=== PATIENT | female | born 1955 | race Caucasian/White ===

== ENCOUNTER → 2020-02-11 17:22 | Outpatient (CLI) | payer BC, SELFPAY | PROVIDERS: PCP Internal Medicine; Referring Provider Internal Medicine; Visit Provider Internal Medicine | DX: U07.1 COVID-19 (principal) | CPT/HCPCS: 87635; 94799; U0003 ==

== ENCOUNTER → 2022-12-10 | Outpatient (CLI) | payer MEDICARE, SELFPAY ==
--- NOTE | 2022-12-10 07:56 | CT_ITS ---
PROCEDURE: CT RIGHT HIP, KNEE AND ANKLE WITHOUT CONTRAST REASON FOR EXAM: Female, 67 years old. Preoperative planning for the [employer] knee surgery. Knee pain. TECHNIQUE: Transaxial CT of the hip, knee and ankle were obtained. Coronal and sagittal reconstruction images of the knee were provided. Individualized dose optimization techniques were used for this CT. COMPARISON: None. FINDINGS: Standard protocol for the preoperative planning for the [employer] robotic knee surgery was performed. There is mild osteoarthrosis of the right hip, right knee and tibiotalar joint. CT/Extremity Lower without Contra IMPRESSION: Preoperative [employer] knee surgical CT evaluation with findings as described above. Electronically Signed: Seun Francois MD at 9:42 EDT ,
== END | disposition home or self-care (01) ==
LOC: CT 07:55
PROVIDERS: PCP Internal Medicine; Referring Provider Orthopaedic Surgery; Visit Provider Orthopaedic Surgery
DX: M17.11 Unilateral primary osteoarthritis, right knee (principal); G89.29 Other chronic pain
CPT/HCPCS: 73700

== ENCOUNTER 2023-02-03 19:00 | Observation (INO) | payer MEDICARE, SELFPAY ==
--- NOTE | 2023-01-21 12:06 | EKG12_ITS ---
Test Reason : PRE-OP Blood Pressure : / mmHG Vent. Rate : 067 BPM Atrial Rate : 067 BPM P-R Int : 136 ms QRS Dur : 082 ms QT Int : 380 ms P-R-T Axes : -24 028 037 degrees QTc Int : 401 ms Normal sinus rhythm Low voltage QRS Borderline ECG Confirmed by WILBUR LE, ANGÉLICA ([id number]), advertising editor AMBERLY DAVIS ([id number]) on 01/22/2023 8:54:35 AM Referred By: Carlos Woods Confirmed By:ANGÉLICA BOWLES MD
[2023-01-21 13:14] LABS: Absolute Lymphocyte Count 1.89 X10^3/uL (0.83-4.51); Absolute Neutrophil Count 3.5 X10^3/uL (2.0-7.7); Basophil# 0.03 X10^3/uL; Basophil% 0.5 % (0-1); Eosinophil# 0.11 X10^3/uL; Eosinophils% 1.8 % (0-5); Hematocrit 39.9 % (37-47); Hemoglobin 12.7 g/dL (12.0-15.0); Lymphocyte # 1.89 X10^3/ul (0.83-4.51); Lymphocyte % 30.8 % (19-41); Mean Corp Hgb Conc 31.8 g/dL (32-36); Mean Corpuscular Hgb 30.4 pg (27.0-32.0); Mean Corpuscular Volume 95.5 fL (81-99); Mean Platelet Vol. 9.9 fl (6.2-12.0); Monocyte# 0.57 X10^3/uL; Monocyte% 9.3 % (0-10); NRBC Flagged by Analyzer 0 % (0-5); Neutrophil # 3.52 X10^3/uL (2.7-7.7); Neutrophil % 57.3 % (47-70); Platelet Count 291 K/mm3 (150-450); RBC Distribution Width CV 12.1 % (11.6-14.6); RBC Distribution Width SD 42.5 fl (35.1-43.9); Red Blood Count 4.18 M/mm3 (4.2-5.4); White Blood Count 6.1 K/mm3 (4.4-11.0)
[2023-01-21 13:37] LABS: Anion Gap 3 (5-15); BUN 9 mg/dL (7-18); Calcium,Total 9.3 mg/dL (8.5-10.1); Chloride 109 mmol/L (98-107); Creatinine, Serum 0.82 mg/dL (0.55-1.02); EST Glomerular Filtration Rate 74 mL/min (>60); Est Glom Filt Rate - Afr Amer 90 mL/min (>60); Glucose 88 mg/dL (74-106); Potassium 3.8 mmol/L (3.5-5.1); Sodium Level 142 mmol/L (136-145)
[2023-01-21 13:39] LABS: Magnesium 2.3 mg/dL (1.6-2.6)
[2023-02-03] VITALS (14 sets, daily range): BP systolic 106–144; BP diastolic 44–77; PULSE 64–73; RESP 12–18; TEMP 35.9–36.7; O2SAT 92–100; BMI 33.5; BMI 34.4
--- NOTE | 2023-02-03 | KNEE_PTH ---
PATHOLOGY RESULTS PATIENT: SUSAN HOLDER LOC: [facility] U#:[id number] AGE/SX: 67/F ROOM: RI315 RE02/03/[address]: Dr. Carlos Woods MD : [id number] BED: 1 DIS: 02/06/2023 SPEC #: [id number] RECD: 02/04/23 09:01 STATUS: GREGG KEYES #: [id number] TREE: 02/03/23 00:[address]: Carlos Woods DEPT: SURGICAL PATHOLOGY RECD BY: James Bullard ENTERED: 02/04/23 09:01 SP TYPE: TOTAL KNEE OTHR DR: Dr. Caity Sullivan MD Tissues: Knee, NOS Procedures: Decalcification bone/plaque Surgery Specimen Level IV HEADER OPERATION: ERAS, right total knee replacement PRE-OP DIAGNOSIS: Grade IV osteoarthritis right knee, right knee pain TISSUE SUBMITTED: Right knee bone and tissue MICROSCOPIC DIAGNOSIS Bone and soft tissue, right knee, total knee replacement/resection: Pieces of bone with degenerative osteoarthritic changes. Fibroadipose tissue, fibroconnective tissue and reactive synovial tissue. SJ: 02/07/2023 MICROSCOPIC DESCRIPTION Slides are reviewed. GROSS DESCRIPTION Received is one container designated bone and tissue right knee. The specimen consists of multiple fragments of araujo-yellow bone measuring in aggregate 15.0 x 10.0 x 2.0 cm. Also in the specimen container are multiple fragments of yellow-white soft tissue measuring in aggregate 5.0 x 3.0 x 1.0 cm. A number of bony fragments contain articular surfaces consistent with tibial plateau and femoral condyle and displaying prominent osteophyte formation, eburnation and bone erosion. Career Services Representative sections are submitted in two cassettes as follows: 1 - soft tissue, 2 - bone after decalcification. / AM:urszula 02/04/2023 TC: 5 CPT: 33449, 69072
[2023-02-03] MEDS: Lactated Ringers 1,000 ML 75 ML IV ×2 (11:00→16:43)
[2023-02-03] MEDS: Lactated Ringers 1,000 ML 999 ML IV ×2 (11:08→15:46)
[2023-02-03] MEDS: Magnesium 1 GM over 15 mins IV (11:09)
[2023-02-03] MEDS: Acetaminophen 500 MG Tablet 1000 MG PO ×2 (11:09→21:41)
[2023-02-03] MEDS: Gabapentin 600 MG Tablet PO (11:10)
[2023-02-03] MEDS: Celecoxib 200 MG Capsule 400 MG PO (11:10)
[2023-02-03 13:02] LABS: Bedside Glucose 90 mg/dL (74-106)
[2023-02-03] MEDS: Cefazolin 2 GM in 0.9% Normal Saline 100 ML IV (13:27)
[2023-02-03] MEDS: TXA 1000mg in NS100 100ml (IVPB at Incision) 660 MG IV (13:56)
[2023-02-03] MEDS: dexAMETHasone 10 MG/ML Vial IV (13:57)
[2023-02-03] MEDS: TXA 1000mg in NS100 100ml (IVPB at Closure) 660 MG IV (14:36)
[2023-02-03] MEDS: JPS (Morphine 10mg/ml) OPERA.SITE (14:51)
--- NOTE | 2023-02-03 14:54 | OP.PCM_ITS ---
Operative Report Date of Procedure: 02/03/23 Preoperative diagnosis: [Right] knee osteo arthritis Postoperative diagnosis: Same Title of procedure : [Right ] total knee replacement Surgeon: Carlos Woods MD Compliance Project Manager: Dang Brewster PA-C Anesthesia: Spinal, adductor canal nerve block Anesthesiologist: Dr. Zuniga Special medications: Ancef 2 g IV, tranexamic acid 1 g IV x2 EBL: 50 Tourniquet time 39 minutes Indications for surgery: Patient is a [67]-year-old [female] with a history of knee arthritis appropriately treated and failed conservative measures and wished to proceed with total knee replacement. Patient was cleared for surgery by the medical doctor and has been evaluated by the anesthesia staff Findings: Intraoperative findings showed severe arthritis of the knee. Patient underwent knee replacement using [employer] total knee components. Press-fit size [5] femur, size [5] tibia , size [5-11 CS] X3 tibial polyethylene insert, knee was nicely balanced. Patella, not resurfaced, tracked well. Patient underwent standard wound closure in layers. Vicryl and strata fix sutures utilized with skin tevin. district administrative assistant, physician nutrition assistant, was utilized throughout the entire procedure. They were vital in helping with patient positioning, holding of retractors, exposing the tissues adequately for safe completion of the procedure including cutting of the bone, helping fixing machine operator appropriate alignment and sizing of the components, implantation of the components, as well as wound closure, bandage application, and safe patient transfer. Without surgical supply assistant, physician nutrition assistant, surgical time would have been significantly increased, and surgical outcome could have been less optimal. Description of procedure: The patient was taken to the OR, transferred to the OR table. They were given a spinal anesthetic. Ancef was given IV preoperatively. Tranexamic acid was given IV preoperatively. Well-padded tourniquet was applied to the upper thigh of the operative leg. Nonoperative leg had a MERT hose and SCD on throughout. Operative limb was prepped padded and draped in usual orthopedic sterile fashion for the procedure. We began by injecting the pain relieving solution in the anterior superior aspect of the knee region. The limb was exsanguinated, and t he tourniquet was applied to 300 mmHg. Made a midline incision through skin, subcutaneous tissue, bringing down us on the extensor mechanism. Medial parapatellar arthrotomy was carried out. Straw-colored joint fluid was evacuated. We raised a sleeve of tissue off the upper medial tibia. Resected some of the infrapatellar fat pad. We remove degenerative medial and lateral meniscus. Removed bone spurs from about the patella. We removed tissue off the anterior aspect of the distal femur. Patella was translated laterally and/or everted as needed throughout the procedure. ACL was resected. PCL was preserved. Collateral ligaments were preserved. Physician placed the retractors and nutrition assistant held retractors protecting above ligaments throughout the procedure. Cartilage was removed from the distal femur and upper tibia at the appropriate locations. Next custom cutting block was applied to the front of the femur. Appropriate external rotation . Distal femoral cut carried out. 4-in-1 cutting premade block was applied to the distal femur and held in place with 4 pins. Compliance Project Manager again held retractors to protect the soft tissues while surgeon performed anterior, posterior, and chamfer cuts. Bony fragments were removed. PCL retractor was placed and collateral ligament protectors placed by the surgeon, held by the assistance. Tibial external alignment guide was utilized under standard technique going down the shaft of the tibia, to the base of the second metatarsal. Appropriate posterior slope was built in. Compliance Project Manager help fixing machine operator alignment. Cutting block was held in place with 3 pins. Again checked the external alignment. Tibial cut carried out with a saw while the nutrition assistant held retractors protecting the soft tissues about the anterior, medial, lateral, and posterior knee. Bone fragment removed. We then sized off the upper tibia with the help of the nutrition assistant. We then checked flexion extension gaps finding them to be adequate and equal. Next the distal femoral trial was applied. Tibial tray was allowed to freefloat with a 11 mm insert. Knee was flexed and extended an external alignment guide is utilized. Tibial trial was pinned in place. Drill holes were placed into the distal femoral trial and it was removed. Punch was used on the upper tibial component and that was removed. Bone spurs removed from the posterior medial and posterior lateral aspect of the femur while the nutrition assistant lifted up on the distal femur and exposed each side. Patella was inspected, without signs of significant arthritis. Patella was not resurfaced. Knee was thoroughly irrigated with Irrisept and sterile Betadine.. The bony surfaces cleaned and dried. Tourniquet was let down at 39 minutes. We press-fit the tibia, femur. Compliance Project Manager held retractors exposing the bony surfaces of the tibia and femur which were hammered in position. We re-trialed with the help of the nutrition assistant and then placed the appropriate sized polyethylene component. We thoroughly irrigated and debrided the knee. Bleeding controlled with the Bovie. Knee was again thoroughly irrigated with sterile Betadine and Irrisept and saline. Patella noted to track nicely. We repaired the arthrotomy with a combination of #1 Vicryl and #2 strata fix. We did a mid layer of 1 Vicryl and #1 strata fix running. We then did inverted 2-0 vicryl . Powell used on the skin.. Mepilex dressing applied. MERT hose and SCDs applied. Patient was awoken from their anesthetic, transferred back to their own bed and recovery room in satisfactory condition. Second dose of IV Tranexamic acid was given while closing wound. Patient was observation status, appropriate IV antibiotic to be utilized as well as medication for DVT prevention. Hopeful discharge tomorrow. Physical therapy will be consulted. This note was generated with [employer] dictation software. It may contain incorrect words, spelling, and punctuation that were not noted in checking the note before signing.
--- NOTE | 2023-02-03 15:36 | RAD_ITS ---
EXAM: XR RIGHT KNEE, 1 OR 2 VIEWS CLINICAL INDICATION: post op TKA -- in PACU TECHNIQUE: Frontal and/or lateral views of the right knee. COMPARISON: No relevant prior studies available. FINDINGS: BONES/JOINTS: Knee prosthesis in place in satisfactory position. SOFT TISSUES: Soft tissue gas and anterior skin tevin in place. No radiopaque foreign body. RAD/Knee 1 or 2 Views IMPRESSION: Satisfactory postop changes. Electronically Signed: Bladimir Carreno MD at 16:51 EDT ,
[2023-02-03] MEDS: oxyCODONE 5 MG Tablet PO (17:09)
[2023-02-03] MEDS: Tamsulosin HCl 0.4 MG Capsule 0.400000000000000022 MG PO (17:11)
[2023-02-03] MEDS: Cefazolin 1 GM/50 ML BAG IV (17:12)
[2023-02-03] MEDS: Lactated Ringers 1,000 ML 125 ML IV (18:05)
--- OUTSIDE RECORDS SUMMARY | 2023-02-03 19:27 | XMS RPT_ITS | CCD ---
Author Name Unknown Address 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 Name Role Phone Laurie LE, Caity Primary Care Provider LINA LE, DR CORLEY Attending Unavaillauren GANDHI MD, DR CAITY Aden Primary Care Unavaillauren Gandhi MD, Caity Primary Care Provider GANTA, CAITY Referring Unavailable GANTA, CAITY Primary Care Unavailable ANTONIA MIRANDA JR Attending Unavaila NO Zabala Referring Unavailable GANTA, CAITY Primary Care Unavailable GANTA, CAITY Referring Unavailable GANTA, CAITY Primary Care Unavailable GANTA, CAITY Attending Unavailable GANTA, CAITY Referring Unavailable GANTA, CAITY Primary Care Unavailable NO FARNSWORTH Referring Unavailable GANTA, CAITY Primary Care Unavailable GANTA, CAITY Primary Care Unavailable MAGDA MONACO Attending Unavailable GANTA, CAITY Primary Care Unavailable GANTA, CAITY Referring Unavailable GANTA, CAITY Primary Care Unavailable GANTA, CAITY Attending Unavailable GANTA, CAITY Primary Care Unavailable ANTONIA MIRANDA JR Referring Unavaila ble GANTA, CAITY Primary Care Unavailable Medications Current Medications Medication Drug Class(es) Dates Sig (Normalized) Sig (Original) sulfamethoxazole 800 mg / trimethoprim 160 mg oral tablet (7 sources) Dihydrofolate Reductase Inhibitor Antibacterial, Sulfonamide Antimicrobial Start: 04-01-2022 End: 04-06-2022 take 1 tablet by mouth twice daily sulfamethoxazol e-trimethoprim (BACTRIM DS) 800-160 mg per tablet Indications: Right flank pain Take 1 tablet by mouth twice daily for 5 days. 10 tablet 0 04/01/2022 04/06/2022 Active Completed/Discontinued Medications Medication Drug Class(es) Dates Sig (Normalized) Sig (Original) betamethasone 3 mg/ml / betamethasone acetate 3 mg/ml injectable suspension (2 sources) Corticosteroid Start: 01-17-2022 End: 01-17-2022 betamethasone acetate-betamethason e sodium phosphate 6 mg injection (CELESTONE) Problems Active Problems Problem Classification Problem Date Documented Da te Episodic/Chronic Conditions associated with dizziness or vertigo (20 sources) Vertigo; Translations: [Dizziness and giddiness] 11-02-2010 Episodic Deficiency and other anemia (20 sources) Anemia; Translations: [Anemia, unspecified] 12-02-2013 Episodic Gastrointestinal hemorrhage (2 sources) Hemorrhage of anus and rectum; Translations: [Hemorrhage of anus and rectum] Onset: 11-22-2022 Episodic Genitourinary symptoms and ill-defined conditions (1 source) Frequency of micturition; Translations: [Urinary frequency] Onset: 11-05-2022 Episodic Hemorrhoids (1 source) External hemorrhoids; Translations: [Residual hemorrhoidal skin tags] Episodic Nutritional deficiencies (2 sources) Vitamin D deficiency; Translations: [Vitamin D deficiency, unspecified] Onset: 05-06-2022 Chronic Osteoarthritis (4 sources) Primary gonarthrosis, bilateral; Translations: [Bilateral primary osteoarthritis of knee] Onset: 11-05-2022 Chronic Osteoporosis (2 sources) Osteoporosis; Translations: [Age-related osteoporosis without current pathological fracture] Onset: 05-21-2022 Chronic Other diseases of kidney and ureters (3 sources) Hydronephrosis; Translations: [Hydronephrosis with renal and ureteral calculous obstruction] Episodic Other nervous system disorders (1 source) Other chronic pain; Translations: [Chronic pain of right knee] Onset: 01-20-2023 Chronic Other non-traumatic joint disorders (4 sources) Pain in left knee; Translations: [Pain in joint, lower leg] Episodic Other non-traumatic joint disorders (1 source) Pain in right knee; Translations: [Chronic pain of right knee] Onset: 01-20-2023 Episodic Other non-traumatic joint disorders (1 source) Pain in unspecified joint; Translations: [Arthralgia, unspecified joint] Onset: 11-05-2022 Episodic Other nutritional; endocrine; and metabolic disorders (20 sources) Body mass index 30+ - obesity; Translations: [Obesity, unspecified] Onset: 12-02-2013 12-02-2013 Chronic Other nutritional; endocrine; and metabolic disorders (20 sources) Obese class I; Translations: [Obesity, unspecified] Onset: 2020 2020 Chronic Other skin disorders (1 source) Loss of hair; Translations: [Nonscarring hair loss, unspecified] Episodic Other skin disorders (1 source) Rash and other nonspecific skin eruption; Translations: [Rash of neck] Onset: 11-05-2022 Episodic Residual codes; unclassified (1 source) Menopause present; Translations: [Asymptomatic menopausal state] Episodic Spondylosis; intervertebral disc disorders; other back problems (1 source) Acute low back pain; Translations: [Acute midline low back pain without sciatica] Episodic Past or Other Problems Problem Classification Problem Date Documented Date Episodic/Chronic Abdominal pain (3 sources) Right flank pain; Translations: [Unspecified abdominal pain] Onset: 04-01-2022 Episodic Calculus of urinary tract (3 sources) Kidney stone; Translations: [Calculus of kidney] Onset: 05-14-2022 Episodic Immunizations and screening for infectious disease (1 source) Encounter for screening for human immunodeficiency virus [HIV]; Translations: [Screening for HIV (human immunodeficiency virus)] Onset: 05-06-2022 Episodic Malaise and fatigue (20 sources) Fatigue; Translations: [Other fatigue] Onset: 12-02-2013 12-02-2013 Episodic Nutritional deficiencies (4 sources) Cobalamin deficiency; Translations: [Deficiency of other specified B group vitamins] Onset: 05-06-2022 Episodic Other diseases of kidney and ureters (1 source) Other hydronephrosis; Translations: [Other hydronephrosis] Onset: 05-14-2022 Episodic Other screening for suspected conditions (not mental disorders or infectious disease) (6 sources) Patient encounter status; Translations: [Encounter for screening mammogram for malignant neoplasm of breast] Onset: 05-21-2022 Episodic Other skin disorders (1 source) Nonscarring hair loss, unspecified; Translations: [Hair loss] Onset: 05-06-2022 Episodic Residual codes; unclassified (1 source) Asymptomatic menopausal state; Translations: [Asymptomatic menopause] Onset: 05-21-2022 Episodic Results Test Name Value Interpretation Reference Range Facil ity Vital Signs Date Time Vital Sign Value Performing Clinician Faci lity 01-20-2023 09:01-0400 Body weight 92.53 kg Magda Jacinda SAS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 Work Phone: [facility] 01-20-2023 09:01-0400 Diastolic blood pressure 80 mm[Hg] Magda Jacinda SAS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 Work Phone: [facility] 01-20-2023 09:01-0400 Heart rate 90 /min Magda Jacinda SAS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 Work Phone: [facility] 01-20-2023 09:01-0400 Respiratory rate 16 /min Magda Jacinda SAS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 Work Phone: [facility] 01-20-2023 09:01-0400 SaO2% (BldA) [Mass fraction] 98 % Magda Jacinda SAS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 Work Phone: [facility] 01-20-2023 09:01-0400 Systolic blood pressure 120 mm[Hg] Magda Jacinda SAS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 Work Phone: [facility] 05-14-2022 13:14-0500 Body height 168.9 cm Antonia Miranda Jr., MD Work Phone: [facility] 05-14-2022 13:14-0500 Body weight 94.8 kg Antonia Miranda Jr., MD Work Phone: [facility] 05-06-2022 11:13-0500 Body height 167.6 cm Caity Gandhi MD Work Phone: [facility] 05-06-2022 11:13-0500 Body temperature 97.59 [degF] Caity Gandhi MD Work Phone: [facility] 05-06-2022 11:13-0500 Body weight 93.89 kg Caity Gandhi MD Work Phone: [facility] 05-06-2022 11:13-0500 Diastolic blood pressure 62 mm[Hg] Caity Gandhi MD Work Phone: [facility] 05-06-2022 11:13-0500 Heart rate 75 /min Caity Gandhi MD Work Phone: [facility] 05-06-2022 11:13-0500 Respiratory rate 12 /min Caity Gandhi MD Work Phone: [facility] 05-06-2022 11:13-0500 SaO2% (BldA) [Mass fraction] 97 % Caity Gandhi MD Work Phone: [facility] 05-06-2022 11:13-0500 Systolic blood pressure 120 mm[Hg] Caity Gandhi MD Work Phone: [facility] 04-01-2022 11:57-0400 Body temperature 97.11 [degF] No Bogner PA-C Work Phone: [facility] 04-01-2022 11:57-0400 Body weight 94.8 kg No Bogner PA-C Work Phone: [facility] 04-01-2022 11:57-0400 Diastolic blood pressure 82 mm[Hg] No Bogner PA-C Work Phone: [facility] 04-01-2022 11:57-0400 Heart rate 66 /min No Bogner PA-C Work Phone: [facility] 04-01-2022 11:57-0400 Respiratory rate 16 /min No Bogner PA-C Work Phone: [facility] 04-01-2022 11:57-0400 SaO2% (BldA) [Mass fraction] 98 % No Bogner PA-C Work Phone: [facility] 04-01-2022 11:57-0400 Systolic blood pressure 136 mm[Hg] No Bogner PA-C Work Phone: [facility] 12-31-2021 11:45-0400 Body weight 94.8 kg Mona Older SAS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 Work Phone: [facility] 12-31-2021 11:45-0400 Diastolic blood pressure 72 mm[Hg] Mona Older SAS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 Work Phone: [facility] 12-31-2021 11:45-0400 Heart rate 66 /min Mona Older SAS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 Work Phone: [facility] 12-31-2021 11:45-0400 Respiratory rate 18 /min Mona Older SAS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 Work Phone: [facility] 12-31-2021 11:45-0400 Systolic blood pressure 126 mm[Hg] Mona Older SAS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 Work Phone: [facility] Encounters Encounter Date Encounter Type Care Provider Facility Start: 01-23-2023 Telephone encounter Caity tellez MD Work Phone: [facility] Procedures Date Procedure Procedure Detail Performing Clinician Start: 05-14-2022 Urnls dip stick/tabl et rgnt auto w/o microscopy Antonia Miranda MD Work Phone: Start: 04-01-2022 Us retroperitoneal r eal time w/image complete No Farnsworth PA-C Work Phone: Start: 04-01-2022 Urnls dip stick/tabl et rgnt auto w/o microscopy Anna Claros PA-C Work Phone: Start: 01-17-2022 Arthrocentesis aspir &/inj major jt/bursa w/o us Lloyd Lovell MD Work Phone: Start: 08-26-2018 Mammography Mona Older SAS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 Work Phone: Start: 04-13-2018 Adult depression scr eening assessment Mona Older SAS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 Work Phone: Start: 04-01-2017 Colonoscopy Mona Older SAS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 Work Phone: Plan of Treatment Date Care Activity Detail Author Start: 04-01-2027 Colonoscopy COLONOSCOPY [facility] Start: 04-01-2027 COLORECTAL CANCER SCREENING COLORECTAL CANCER SCREENING [facility] Start: 06-06-2026 LIPID SCREEN LIPID SCREEN [facility] Start: 06-06-2024 DIABETES SCREEN DIABETES SCREEN [facility] Start: 12-15-2023 SIGMOIDOSCOPY SIGMOIDOSCOPY [facility] Start: 02-14-2023 Influenza vaccination [facility] Start: 06-16-2022 ADVANCE DIRECTIVE DISCUSSION ADVANCE DIRECTIVE DISCUSSION [facility] Start: 06-16-2022 DEPRESSION ASSESSMENT DEPRESSION ASSESSMENT [facility] Start: 05-06-2022 End: 07-06-2022 25-hydroxyvitamin D3 [Mass/volume] in Serum or Plasma [facility] Work Phone: Immunizations Immunization Date Immunization Notes Care Provider Fa brady 06-05-2021 influenza, injectabl e, quadrivalent, contains preservative Mona Older SAS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 Work Phone: [facility] Work Phone: 04-13-2018 influenza, injectabl e, quadrivalent, contains preservative Mona Older SAS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 Work Phone: [facility] Work Phone: 02-18-2017 zoster vaccine, live Mona Old er SAS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 Work Phone: [facility] 12-13-2010 tetanus toxoid, reduced diphtheria toxoid, and acellular pertussis vaccine, adsorbed Mona Older SAS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 Work Phone: [facility] Work Phone: NEGATED: Highlighted row has not occurred!05-06-2022 pneumococcal (PCV20) vaccine, 20 valent (PREVNAR 20) Caity Gandhi MD Work Phone: [facility] Work Phone: Payers Date Payer Category Payer Medicare [employer] [place] [id number] 2021-Present [phone] [address] [place] [address] [facility] [id number] 2021 Medicare [employer] [place] [id number] 2021-Present [phone] [address] [place] [address] [facility] [id number] 2021 Unknown [id number] 1955 Unknown [id number] Social History Date Type Detail Facility Start: 04-01-2017 End: 05-06-2022 Tobacco smoking status NHIS Ex-smoker [facility] End: 06-16-1986 History of tobacco use Current smoker [facility] End: 06-16-1986 History of tobacco use Cigarette Smoker [facility] Start: 04-01-2017 End: 11-05-2022 Cigarettes smoked current (pack per day) - Reported 0.5 [facility] Work Phone: Start: 04-01-2017 End: 05-06-2022 Tobacco use and exposure Smokeless tobacco non-user [facility] Start: 12-31-2021 End: 01-20-2023 Alcohol intake Current non-drinker of alcohol (finding) [facility] Start: 1955 Sex Assigned At Not on file [facility] Start: 12-18-2021 End: 12-28-2021 Exposure to SARS-CoV-2 (event) Unable to assess [facility] Work Phone: Start: 01-07-2022 End: 05-14-2022 Exposure to SARS-CoV-2 (event) Not sure [facility] Start: 11-05-2022 End: 01-20-2023 Tobacco use panel [facility] Work Phone: Adult Depression Screening Assessment 0 [facility] Work Phone: Clinical Notes 12-02-2013 to 01-23-2023 Telephone Encounter - Vanessa Osman RN - 01/23/2023 8:43 AM Magda Duran APRN.CNP - 01/20/2023 9:04 AM EDTTelephone Encounter - Daisy Turner LPN - 11/19/2022 2:31 PM EDT Note Date & Type Note Facility 01-23-2023 Miscellaneous Notes Dejuan from [facility] called in asking to have pre-op clearance faxed over to them. Faxed last OV note to # [phone]. documented in this encounter [facility] 01-20-2023 Note HNO ID: [id number] Author: Magda Monaco APRN.RESIDENTIAL SALES Service: ? Author Type: Nurse Practitioner Type: Progress Notes Filed: 01/29/2023 9:51 AM Note Text: SUBJECTIVE Olinda Holder is a 67 year old female here today for a pre-op appointment. Chief Complaint Patient presents with: Pre-Op Exam HPI Olinda Holder is an 67 year old female established patient of Dr. Gandhi who presents to the office for a pre-op examination. Is scheduled to have a right TKR following failure of conservative therapies done on 02/03/2023 by Mikael Madison with Dr. Woods at [facility]. History of having anesthesia: Yes, has had prior c-sections, sigmoidoscopy, foot surgery. Any reaction from anesthesia in the past: No. Personal or family history of heart disease: No. Plans for care after surgery: stay in [facility] and then home care. Chronic diseases controlled: N/A. Currently taking a blood thinner: No. Patient denies chest pain, SOB, dizziness, palpitations, one sided weakness, dropping of face or mouth, fever, or recent sickness. No history of CVA or FL. Labs, EKG to be obtained. Prior chest xray was stable. Prior labs stable. No history of significant medical problems. Her medications were reviewed today and her list is now up to date. Medications Current Outpatient Medications Medication Sig Huqwqfibcfc-Rimfjrums-Oqs C-Mn (GLUCOSAMINE CHONDROITIN MAXSTR) 500-400 mg cap Take 1 capsule by mouth three times daily. Cholecalciferol, Vitamin D3, 25 mcg (1,000 unit) cap Take 1 capsule by mouth once daily. cyanocobalamin (VITAMIN B-12) 1,000 mcg tab Take 1 tablet by mouth once daily. calcium polycarbophil (FIBER-LAX) 625 mg tablet Take 1 tablet by mouth as needed. No current facility-administered medications for this visit. ALLERGIES No Known Allergies ACTIVE PROBLEM LIST Obesity, Class I, Bmi 30-34.9 - 2020 Vertigo Anemia Social History Tobacco Use Smoking status: Former Packs/day: 0.50 Years: 15.00 Total pack years: 7.50 Types: Cigarettes Quit date: 1986 Years since quittin.6 Smokeless tobacco: Never Vaping Use Vaping Use: Never used Substance Use Topics Alcohol use: No Drug use: No Review of Systems Constitutional: Negative. Eyes: Negative for visual disturbance. Respiratory: Negative for chest tightness and shortness of breath. Cardiovascular: Negative for chest pain, palpitations and leg swelling. Musculoskeletal: Positive for arthralgias. Neurological: Negative for seizures, syncope, facial asymmetry and speech difficulty. OBJECTIVE BP 120/80 Pulse 90 Resp 16 Wt 204 lb (92.5kg) SpO2 98% LMP 01/04/2011 Physical Exam Vitals and nursing note reviewed. Constitutional: General: She is awake. She is not in acute distress. Appearance: She is well-developed and well-groomed. She is not ill-appearing, toxic-appearing or diaphoretic. HENT: Head: Normocephalic. Eyes: General: Vision grossly intact. Conjunctiva/sclera: Conjunctivae normal. Pupils: Pupils are equal, round, and reactive to light. Neck: Vascular: No carotid bruit or JVD. Cardiovascular: Rate and Rhythm: Normal rate and regular rhythm. Heart sounds: Normal heart sounds. No murmur heard. Pulmonary: Effort: Pulmonary effort is normal. No accessory muscle usage, prolonged expiration or respiratory distress. Breath sounds: Normal breath sounds. Musculoskeletal: Cervical back: Normal range of motion and neck supple. Right lower leg: No edema. Left lower leg: No edema. Skin: General: Skin is warm and dry. Capillary Refill: Capillary refill takes less than 2 seconds. Neurological: General: No focal deficit present. Mental Status: She is alert and oriented to person, place, and time. Mental status is at baseline. Cranial Nerves: No cranial nerve deficit. Sensory: No sensory deficit. Psychiatric: Attention and Perception: Attention and perception normal. Mood and Affect: Mood normal. Speech: Speech normal. Behavior: Behavior normal. Behavior is cooperative. Thought Content: Thought content normal. Judgment: Judgment normal. ASSESSMENT/PLAN: 1. Primary osteoarthritis of right knee - ICD9: 715.16, ICD10: M17.11 (primary diagnosis) Scheduled to have a right TKR following failure of conservative therapies done on 02/03/2023 by Mikael Madison with Dr. Woods at [facility] 2. Chronic pain of right knee - ICD9: 719.46, 338.29, ICD10: M25.561, G89.29 See #1 3. Pre-op evaluation - ICD9: V72.84, ICD10: Z01.818 Based on physical exam done at today's visit, negative review of systems, negative history for heart disease, CVD, and review of prior stable chest xray, the patient is cleared for surgery from a primary care standpoint pending that her pre-op labs and EKG are stable and without issues that would interfere with the planned procedure. If pre-op testing stable then ok to proceed with planned procedure at the discretion of the performing provider. Po (more content not included)... [facility] 01-20-2023 History of Presen t illness Narrative SUBJECTIVE Olinda Holder is a 67 year old female here today for a pre-op appointment. Chief Complaint Patient presents with: Pre-Op Exam HPI Olinda Holder is an 67 year old female established patient of Dr. Gandhi who presents to the office for a pre-op examination. Is scheduled to have a right TKR following failure of conservative therapies done on 02/03/2023 by Mikael Madison with Dr. Woods at [facility]. History of having anesthesia: Yes, has had prior c-sections, sigmoidoscopy, foot surgery. Any reaction from anesthesia in the past: No. Personal or family history of heart disease: No. Plans for care after surgery: stay in [facility] and then home care. Chronic diseases controlled: N/A. Currently taking a blood thinner: No. Patient denies chest pain, SOB, dizziness, palpitations, one sided weakness, dropping of face or mouth, fever, or recent sickness. No history of CVA or FL. Labs, EKG to be obtained. Prior chest xray was stable. Prior labs stable. No history of significant medical problems. Her medications were reviewed today and her list is now up to date. Medications Current Outpatient Medications Medication Sig Klikenlnedt-Cvyxawyzy-Whw C-Mn (GLUCOSAMINE CHONDROITIN MAXSTR) 500-400 mg cap Take 1 capsule by mouth three times daily. Cholecalciferol, Vitamin D3, 25 mcg (1,000 unit) cap Take 1 capsule by mouth once daily. cyanocobalamin (VITAMIN B-12) 1,000 mcg tab Take 1 tablet by mouth once daily. calcium polycarbophil (FIBER-LAX) 625 mg tablet Take 1 tablet by mouth as needed. No current facility-administered medications for this visit. ALLERGIES No Known Allergies ACTIVE PROBLEM LIST Obesity, Class I, Bmi 30-34.9 - 2020 Vertigo Anemia Social History Tobacco Use Smoking status: Former Packs/day: 0.50 Years: 15.00 Total pack years: 7.50 Types: Cigarettes Quit date: 1986 Years since quittin.6 Smokeless tobacco: Never Vaping Use Vaping Use: Never used Substance Use Topics Alcohol use: No Drug use: No Review of Systems Constitutional: Negative. Eyes: Negative for visual disturbance. Respiratory: Negative for chest tightness and shortness of breath. Cardiovascular: Negative for chest pain, palpitations and leg swelling. Musculoskeletal: Positive for arthralgias. Neurological: Negative for seizures, syncope, facial asymmetry and speech difficulty. OBJECTIVE BP 120/80 Pulse 90 Resp 16 Wt 204 lb (92.5kg) SpO2 98% LMP 01/04/2011 Physical Exam Vitals and nursing note reviewed. Constitutional: General: She is awake. She is not in acute distress. Appearance: She is well-developed and well-groomed. She is not ill-appearing, toxic-appearing or diaphoretic. HENT: Head: Normocephalic. Eyes: General: Vision grossly intact. Conjunctiva/sclera: Conjunctivae normal. Pupils: Pupils are equal, round, and reactive to light. Neck: Vascular: No carotid bruit or JVD. Cardiovascular: Rate and Rhythm: Normal rate and regular rhythm. Heart sounds: Normal heart sounds. No murmur heard. Pulmonary: Effort: Pulmonary effort is normal. No accessory muscle usage, prolonged expiration or respiratory distress. Breath sounds: Normal breath sounds. Musculoskeletal: Cervical back: Normal range of motion and neck supple. Right lower leg: No edema. Left lower leg: No edema. Skin: General: Skin is warm and dry. Capillary Refill: Capillary refill takes less than 2 seconds. Neurological: General: No focal deficit present. Mental Status: She is alert and oriented to person, place, and time. Mental status is at baseline. Cranial Nerves: No cranial nerve deficit. Sensory: No sensory deficit. Psychiatric: Attention and Perception: Attention and perception normal. Mood and Affect: Mood normal. Speech: Speech normal. Behavior: Behavior normal. Behavior is cooperative. Thought Content: Thought content normal. Judgment: Judgment normal. ASSESSMENT/PLAN: 1. Primary osteoarthritis of right knee - ICD9: 715.16, ICD10: M17.11 (primary diagnosis) Scheduled to have a right TKR following failure of conservative therapies done on 02/03/2023 by Mikael Madison with Dr. Woods at [facility] 2. Chronic pain of right knee - ICD9: 719.46, 338.29, ICD10: M25.561, G89.29 See #1 3. Pre-op evaluation - ICD9: V72.84, ICD10: Z01.818 Based on physical exam done at today's visit, negative review of systems, negative history for heart disease, CVD, and review of prior stable chest xray, the patient is cleared for surgery from a primary care standpoint pending that her pre-op labs and EKG are stable and without issues that would interfere with the planned procedure. If pre-op testing stable then ok to proceed with planned procedure at the discretion of the performing provider. Portions of this note have been entered by ancillary staff. I have reviewed and when necessary edited, so that they are an adequate record of my encounter with this patient Please note that parts of this document were created using voice recognition software and therefore may contain grammatical errors. Patient verbalizes understanding of instructions from today's visit and in agreement with treatment plan. Questions answered. Agrees to call the office if questions, concerns of issues with acute symptoms not improving or if they worsen. See diagnoses and orders for additional plan(s). Allergies and medications were reviewed, list was updated, and refills given if needed. Past medical, surgical, social, and family history reviewed and updated as appropriate. Encouraged proper diet & exercise as well as compliance with taking medications. Age-appropriate health preventative measures were discussed. Return if symptoms worsen or fail to improve, for Keep next scheduled appointment.. Magda Monaco APRN-KHURRAM documented in this encounter [facility] 01-08-2023 Note Patient Outreach (IN [facility]) OLINDA HOLDER ([id number]) 1955 F Date Time Provider Department 01/08/23 CAITY GANDHI During your visit today, we recorded the following information about you: Allergies As of Date: 01/08/2023 (No Known Allergies) Date Reviewed: 11/05/2022 Reviewed by: Mariella Richard LPN - Fully Assessed Visit Diagnosis:Encounter for screening mammogram for breast cancer [Z12.31] Order(s):[facility] SCREENING [[id number]] Order #: [id number] FUTURE Prescriptions as of 01/13/2023 - Kwnnufsvlgu-Ggkyfqtxq-Ytz C-Mn (GLUCOSAMINE CHONDROITIN MAXSTR) 500-400 mg cap Take 1 capsule by mouth three times daily. - Cholecalciferol, Vitamin D3, 25 mcg (1,000 unit) cap Take 1 capsule by mouth once daily. - cyanocobalamin (VITAMIN B-12) 1,000 mcg tab Take 1 tablet by mouth once daily. - calcium polycarbophil (FIBER-LAX) 625 mg tablet Take 1 tablet by mouth as needed. - tamsulosin (FLOMAX) 0.4 mg Take 1 capsule by mouth daily at bedtime. - tamsulosin (FLOMAX) 0.4 mg Take 1 capsule by mouth daily at bedtime. Meds Comments as of 01/18/2011: B-12 vitamin - unsure of dosage; Calcium plus Problem List As Of Date 01/08/2023 Noted Resolved Vertigo [R42] Anemia [D64.9] Obesity (BMI 30-39.9) [E66.9] 12/02/2013 Fatigue [R53.83] 12/02/2013 Obesity, Class I, BMI 30-34.9 [E66.9] 2020 Encounter Status:Closed by [place] on 01/13/23 [facility] 11-19-2022 Miscellaneous Notes Pt is calling to request referral and pt information be faxed to Dr. Mancuso. Pt info faxed to: [phone]. Daisy Turner LPN documented in this encounter [facility] 11-05-2022 Note HNO ID: [id number] Author: Caity Gandhi MD Service: ? Author Type: Physician Type: Progress Notes Filed: 11/05/2022 8:37 PM Note Text: Reason for Visit Patient presents with: Follow Up Olinda Holder is a 67 year old female who presents here today for Above Complaints.. Health Maintenance COVID-19 VACCINE(1) SHINGRIX VACCINE(2 of 3) MAMMOGRAM DTAP,TDAP,TD(2 - Td or Tdap) PNEUMOCOCCAL: 65+(1 - PCV) ADVANCE DIRECTIVE DISCUSSION DEPRESSION ASSESSMENT HPI Osteopenia: BMD 5 months ago show below Major osteoporotic fracture risk 11% Hip fracture risk 1.9% She has been taking vit d almost every day with food, her levels were mildly low in the past. and calcium 600 once a day Exercises by working in the garden, takes dog out for walk . Weight is stable Kidney stones: had small ones since [address] scan[address] She had some last week. She was given some flomax when she was having pain. For the past few days, she has been having the feeling of incomplete voiding, she has to keep going in. She leaks a little at a time. Needs to use a pad, she also think that the prolapsed uterus is contributing to this inefficiency with the urine. Patient will have an infection in one of the tubing that he has. Looking to have a knee replacement in near future. She has a rash in the area of the shawl. Pain in the knuckles,. And swelling of the hand joints. Feels irritated now adays and is fatigued. 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 PAST MEDICAL HISTORY Diagnosis Date Anemia DJD (degenerative joint disease) Snoring Vertigo Vitamin D deficiency PAST SURGICAL HISTORY Procedure Laterality Date SECTION MULTI>2 COLONOSCOPY FLX DX W/COLLJ SPEC WHEN PFRMD 04/01/2017 Colonoscopy FOOT SURGERY HX SIGMOIDOSCOPY FLX DX W/COLLJ SPEC BR/WA IF PFRMD 12/14/2018 Sigmoidoscopy, flexible FAMILY HISTORY Problem Relation Age of Onset Cancer Mother tumor in the abdomen Cancer Father ? does not know Diabetes Father Diabetes Sister Diabetes Brother other (alzheimers) Paternal Grandmother No Known Problems Maternal Grandmother No Known Problems Maternal Grandfather No Known Problems Paternal Grandfather No Known Problems Sister No Known Problems Sister No Known Problems Sister No Known Problems Sister Diabetes Daughter Gestationl Thyroid Son Hypothyroid No Known Problems Son No Known Problems Son Social History Tobacco Use Smoking status: Former Packs/day: 0.50 Years: 15.00 Pack years: 7.50 Types: Cigarettes Quit date: 1986 Years since quittin.4 Smokeless tobacco: Never Vaping Use Vaping Use: Never used Substance Use Topics Alcohol use: No Drug use: No Past medical history, appointments, medications, allergies reviewed. Pertinent Lab/Diagnostic Studies are reviewed and discussed today Current Outpatient Medications: tamsulosin (FLOMAX) 0.4 mg tamsulosin (FLOMAX) 0.4 mg doxycycline monohydrate (MONODOX) 100 mg capsule meloxicam (MOBIC) 15 mg tablet Review of Systems CONSTITUTIONAL: No fevers, chills night sweats, unintended weight loss CARDIOVASCULAR: No chest pain, dyspnea, palpitations, orthopnea, PND, ankle edema. PULM: No dyspnea, unexplained cough. GI: No dysphagia/odynophagia, problematic reflux, constipation, diarrhea, changes in stool habits, hematochezia, melena. : No new urinary complaints, including dysuria, gross hematuria or pyuria. NEURO: No new balance problems, peripheral weakness/paresthesias or numbness of concern. Physical Exam BP 124/58 (BP Site: Left Arm, BP Position: Sitting, BP Cuff Size: Large Adult) Pulse 71 Temp 36.2 ?C (97.2 ?F) Resp 12 Ht 168.9 cm (5' 6.5 ) Wt 93.9 kg (207 lb) LMP 01/04/2011 SpO2 97% BMI 32.91 kg/m? General appearance: Well appearing, alert, in no acute distress, well nourished. Skin: erythematous , mildly raised redness around the area of the shawl. Head: Normocephalic, no masses, lesions, tenderness or abnormalities Eyes: Anicteric sclera. Pupils are equally round and reactive to light. Extraocular movements are intact. Lungs: Lungs clear to auscultation. No wheezing, rhonchi, rales Heart: RRR without murmur, gallop, or rubs. Extremities: No deformities, edema, skin discoloration, clubbing or cyanosis. Good capillary refill. ASSESSMENT/PLAN: 1. Urinary frequency - ICD9: 788.41, ICD10: R35.0 (primary diagnosis) - URINALYSIS WITH MICROSCOPIC, REFLEX CULTURE - CONSULT TO FEMALE UROLOGY/URO GYNECOLOGY 2. Uterus prolapse - ICD9: 618.1, ICD10: N81.4 - CONSULT TO FEMALE UROLOGY/URO GYNECOLOGY 3. Voiding difficulty - ICD9: 788.99, ICD10: R39.198 The urine stream is thin and inconsistent when she voids - CONSULT TO FEMALE UROLOGY/URO GYNECOLOGY 5. Rash of neck - ICD9: 782.1, ICD10: R21 - SED RATE WESTERGREN - C (more content not included)... [facility] 09-02-2022 Miscellaneous Notes Patient calls and is asking for a referral to gastroenterology due to external hemorrhoids. Patient did have referral placed on 04/01/2022. Advised patient of this, patient asking for referral to be faxed to Dr. Landry's office. Faxed as requested along with office notes, face sheet, and insurance information. Kelly De La Torre RN documented in this encounter [facility] 05-29-2022 Miscellaneous Notes Spoke with pt message released Images from the original note were not included. Antonia Miranda Jr., MD [facility] Ct shows bilateral small nonobstructing stones Fu 1 year. LVM to call back documented in this encounter [facility] 05-28-2022 Note HNO ID: [id number] Author: RT Jose(R) Service: ? Author Type: Gaming Floor Supervisor Type: Progress Notes Filed: 05/28/2022 1:57 PM Note Text: Radiology Service Progress Note PATIENT NAME: Olinda Holder DATE OF SERVICE: May 28, 2022 TIME: 1:57 PM PATIENT IDENTITY VERIFICATION COMPLETED USING TWO (2) IDENTIFIERS: Name and Date of confirmed by patient verbally. FALL SCREENING: Has the patient had 2 falls in the last year or 1 fall with injury or currently using an Ambulatory Assistive Device (Walker, Cane, Wheelchair, Crutches, etc.)? No PATIENT GENDER DATA: Female. status: : No status: NO. PATIENT RELEVANT IMPLANT DATA REVIEWED: Yes RADIOLOGY DEPARTMENT: CT; Exam(s) Completed: Abdomen/Pelvis PERIPHERAL IV DATA: Not applicable SIGNED BY: RT Sima(R) May 28, 2022 1:[address] [facility] 05-24-2022 Miscellaneous Notes Patient notified. ----- Message from Caity Gandhi MD sent at 05/24/2022 2:03 PM EST ----- Low bone mass in both hips. We will discuss at upcoming office visit documented in this encounter [facility] 05-21-2022 Note HNO ID: [id number] Author: RT Nikole(R) Service: ? Author Type: Technologist Type: Progress Notes Filed: 05/21/2022 2:47 PM Note Text: Radiology Service Progress Note PATIENT NAME: Oilnda Holder DATE OF SERVICE: May 21, 2022 TIME: 2:35 PM PATIENT IDENTITY VERIFICATION COMPLETED USING TWO (2) IDENTIFIERS: Name and Date of confirmed by patient verbally. FALL SCREENING: Has the patient had 2 falls in the last year or 1 fall with injury or currently using an Ambulatory Assistive Device (Walker, Cane, Wheelchair, Crutches, etc.)? No PATIENT GENDER DATA: Female. status: : No status: NO. PATIENT RELEVANT IMPLANT DATA REVIEWED: Not Applicable RADIOLOGY DEPARTMENT: Bone Density PERIPHERAL IV DATA: Not applicable SIGNED BY: RT Nikole(R) May 21, 2022 2:[address] [facility] 05-16-2022 Miscellaneous Notes Patient notified of results, verbalizes understanding of instructions. Maddison Sanon MA Second attempt to reach patient by phone with no answer. VM unavailable. Please try again later. THIAGO Saldaña Attempted to contact patient. First attempt-line was busy. On second attempt- no answer and no VM available to leave message. Please try to contact patient again. Debo Atwood RN Iron is normal Vit d levels are mildly lowPlease take OT vit d3 2000 IU daily with food. The vit b12 is a little on the lower side. She can take over the counter supplement, daily Pt requesting PCP to advise on recent lab results from 05/06/22. Pt also requesting refill of flomax if agreeable. Reports continued bladder issues as before. Script pended. Thank you. documented in this encounter [facility] 05-14-2022 Note HNO ID: [id number] Author: Antonia Miranda Jr., MD Service: ? Author Type: Physician Type: Progress Notes Filed: 05/14/2022 1:30 PM Note Text: NEW PATIENT HISTORY AND PHYSICAL EXAM PATIENT INFO: Olinda Holder 66 year old REFERRING PROVIDER: Data Unavailable PCP: Caity Gandhi MD HPI Olinda Holder is a 66 year old female refer for kidney stone and hydronephrosis. Ho kidney stones. Started having right flank pain last month. Renal us 04/01/22 showed bilateral nonobstructing renal calculi with r hydronephrosis. Not much in the way of pain now. Occasional r flank twinges. Has not seen anything pass. Review of Systems Constitutional: Negative. Respiratory: Negative. Cardiovascular: Negative. Gastrointestinal: Negative. Genitourinary: Negative. Skin: Negative. Neurological: Negative. Psychiatric/Behavioral: Negative. LAB: Creatinine Date Value Ref Range Status 06/06/2021 0.75 0.58 - 0.96 mg/dL Final No results found for: PSA Glucose, Urine (mg/dL) Date Value 01/18/2011 Negative Bilirubin, Urine (no units) Date Value 01/18/2011 Negative Ketones, Urine (no units) Date Value 01/18/2011 Negative Specific [place], Ur (no units) Date Value 01/18/2011 1.020 Hemoglobin/Blood,Ur (no units) Date Value 01/18/2011 Negative pH, Urine (no units) Date Value 01/18/2011 5.0 Protein, Urine (mg/dL) Date Value 01/18/2011 Negative Urobilinogen, Urine (EU) Date Value 01/18/2011 Negative Nitrites (no units) Date Value 01/18/2011 Negative Leukocytes (no units) Date Value 01/18/2011 Positive Color/Appearance (comment:) Date Value 01/18/2011 Yellow/clear MEDICATIONS: tamsulosin (FLOMAX) 0.4 mg Take 1 capsule by mouth daily at bedtime. (Patient not taking: Reported on 05/14/2022) tamsulosin (FLOMAX) 0.4 mg Take 1 capsule by mouth daily at bedtime. (Patient not taking: Reported on 05/14/2022) doxycycline monohydrate (MONODOX) 100 mg capsule Take one pill twice daily with food for 7 days. Avoid sun exposure (Patient not taking: Reported on 01/17/2022) meloxicam (MOBIC) 15 mg tablet Take 1 tablet by mouth once daily. With food. (Patient not taking: Reported on 04/01/2022) HISTORIES PAST MEDICAL HISTORY Diagnosis Date Anemia DJD (degenerative joint disease) Snoring Vertigo Vitamin D deficiency FAMILY HISTORY Problem Relation Age of Onset Cancer Mother tumor in the abdomen Cancer Father ? does not know Diabetes Father Diabetes Sister Diabetes Brother other (alzheimers) Paternal Grandmother No Known Problems Maternal Grandmother No Known Problems Maternal Grandfather No Known Problems Paternal Grandfather No Known Problems Sister No Known Problems Sister No Known Problems Sister No Known Problems Sister Diabetes Daughter Gestationl Thyroid Son Hypothyroid No Known Problems Son No Known Problems Son SOCIAL HISTORY Social History Tobacco Use Smoking status: Former Packs/day: 0.50 Years: 15.00 Pack years: 7.50 Types: Cigarettes Quit date: 1986 Years since quittin.9 Smokeless tobacco: Never Vaping Use Vaping Use: Never used Substance Use Topics Alcohol use: No Drug use: No PHYSICAL EXAMINATION Ht 168.9 cm (5' 6.5 ) Wt 94.8 kg (209 lb) LMP 01/04/2011 BMI 33.23 kg/m? General appearance: Well appearing, alert, in no acute distress, and well-hydrated, well nourished Skin: Skin color, texture, turgor normal, no suspicious rashes or lesions Respiratory:+ effort Cardiovascular: Not examined GI: Normal abdominal exam, Abdomen soft, non-tender. No masses, organomegaly Musculoskeletal: normal ROM Neuro: No gross neurologic defecits Genitourinary: not examined ASSESSMENT: (N13.39) Other hydronephrosis (N20.0) Nephrolithiasis PLAN: Ct flank Set for one year Let know results and plan Antonia Miranda Jr, MD [facility] 05-14-2022 Instructions Antonia Miranda Jr., MD - 05/14/2022 1:23 PM EST Counseled patient on increasing fluids, avoiding salt, avoiding caffeine, avoiding large portions of animal fat/meats at one time and increasing citrates in diet. documented in this encounter [facility] 05-14-2022 History of Presen t illness Narrative NEW PATIENT HISTORY AND PHYSICAL EXAM PATIENT INFO: Olinda Holder 66 year old REFERRING PROVIDER: Data Unavailable PCP: Caity Gandhi MD HPI Olinda Holder is a 66 year old female refer for kidney stone and hydronephrosis. Ho kidney stones. Started having right flank pain last month. Renal us 04/01/22 showed bilateral nonobstructing renal calculi with r hydronephrosis. Not much in the way of pain now. Occasional r flank twinges. Has not seen anything pass. Review of Systems Constitutional: Negative. Respiratory: Negative. Cardiovascular: Negative. Gastrointestinal: Negative. Genitourinary: Negative. Skin: Negative. Neurological: Negative. Psychiatric/Behavioral: Negative. LAB: Creatinine Date Value Ref Range Status 06/06/2021 0.75 0.58 - 0.96 mg/dL Final No results found for: PSA Glucose, Urine (mg/dL) Date Value 01/18/2011 Negative Bilirubin, Urine (no units) Date Value 01/18/2011 Negative Ketones, Urine (no units) Date Value 01/18/2011 Negative Specific [place], Ur (no units) Date Value 01/18/2011 1.020 Hemoglobin/Blood,Ur (no units) Date Value 01/18/2011 Negative pH, Urine (no units) Date Value 01/18/2011 5.0 Protein, Urine (mg/dL) Date Value 01/18/2011 Negative Urobilinogen, Urine (EU) Date Value 01/18/2011 Negative Nitrites (no units) Date Value 01/18/2011 Negative Leukocytes (no units) Date Value 01/18/2011 Positive Color/Appearance (comment:) Date Value 01/18/2011 Yellow/clear MEDICATIONS: tamsulosin (FLOMAX) 0.4 mg Take 1 capsule by mouth daily at bedtime. (Patient not taking: Reported on 05/14/2022) tamsulosin (FLOMAX) 0.4 mg Take 1 capsule by mouth daily at bedtime. (Patient not taking: Reported on 05/14/2022) doxycycline monohydrate (MONODOX) 100 mg capsule Take one pill twice daily with food for 7 days. Avoid sun exposure (Patient not taking: Reported on 01/17/2022) meloxicam (MOBIC) 15 mg tablet Take 1 tablet by mouth once daily. With food. (Patient not taking: Reported on 04/01/2022) HISTORIES PAST MEDICAL HISTORY Diagnosis Date Anemia DJD (degenerative joint disease) Snoring Vertigo Vitamin D deficiency FAMILY HISTORY Problem Relation Age of Onset Cancer Mother tumor in the abdomen Cancer Father ? does not know Diabetes Father Diabetes Sister Diabetes Brother other (alzheimers) Paternal Grandmother No Known Problems Maternal Grandmother No Known Problems Maternal Grandfather No Known Problems Paternal Grandfather No Known Problems Sister No Known Problems Sister No Known Problems Sister No Known Problems Sister Diabetes Daughter Gestationl Thyroid Son Hypothyroid No Known Problems Son No Known Problems Son SOCIAL HISTORY Social History Tobacco Use Smoking status: Former Packs/day: 0.50 Years: 15.00 Pack years: 7.50 Types: Cigarettes Quit date: 1986 Years since quittin.9 Smokeless tobacco: Never Vaping Use Vaping Use: Never used Substance Use Topics Alcohol use: No Drug use: No PHYSICAL EXAMINATION Ht 168.9 cm (5' 6.5 ) Wt 94.8 kg (209 lb) LMP 01/04/2011 BMI 33.23 kg/m General appearance: Well appearing, alert, in no acute distress, and well-hydrated, well nourished Skin: Skin color, texture, turgor normal, no suspicious rashes or lesions Respiratory:+ effort Cardiovascular: Not examined GI: Normal abdominal exam, Abdomen soft, non-tender. No masses, organomegaly Musculoskeletal: normal ROM Neuro: No gross neurologic defecits Genitourinary: not examined ASSESSMENT: (N13.39) Other hydronephrosis (N20.0) Nephrolithiasis PLAN: Ct flank Set for one year Let know results and plan Antonia Miranda Jr, MD documented in this encounter [facility] 05-06-2022 Note HNO ID: [id number] Author: Caity Gandhi MD Service: ? Author Type: Physician Type: Progress Notes Filed: 05/06/2022 1:59 PM Note Text: Reason for Visit Patient presents with: Follow Up Olinda Holder is a 66 year old female who presents here today for Above Complaints.. Health Maintenance COVID-19 VACCINE(1) HIV SCREENING SHINGRIX VACCINE(2 of 3) MAMMOGRAM DTAP,TDAP,TD(2 - Td or Tdap) DEPRESSION ASSESSMENT BONE DENSITY ADVANCE DIRECTIVE DISCUSSION PNEUMOCOCCAL: 65+(1 - PCV) INFLUENZA(1) HPI Knee pain: patient is going to see Dr Woods for her knee pain. Had see Dr Lovell and wanted to a second opinion. Patient was also diagnosed with kidney stones in the recent past, she had b/l kidney stones and some proximal dilatations of the ureters. Patient notes everything was hurting her a lot. Seeing uro in [place], Right now there is no pain, sometimes she has discomfort mopping the floors. HTN: Compliant with medications. Denies any chest pain, palpitations, or edema. No SOB. Doesn't check BP at home generally. Careful with diet to avoid salt, trying to eat more fruits and vegetables, exercises regularly. She is taking vit d and b12. She started taking biotin for hair loss. She tried minoxidil, but since it had a side effects of swelling and not sure if that was from the meloxicam or the minoxidil she stopped it and does not want to try the medication again She has lost 2 pounds of weight. The 10-year ASCVD risk score (Abner RODRIGUEZ, et al., 2019) is: 5.1% Values used to calculate the score: Age: 66 years Sex: Female Is Non- : No Diabetic: No Tobacco smoker: No Systolic Blood Pressure: 120 mmHg Is BP treated: No HDL Cholesterol: 46 mg/dL Total Cholesterol: 184 mg/dL No problem-specific Assessment AND Plan notes found for this encounter. PAST MEDICAL HISTORY Diagnosis Date Anemia DJD (degenerative joint disease) Snoring Vertigo Vitamin D deficiency PAST SURGICAL HISTORY Procedure Laterality Date SECTION MULTI>2 COLONOSCOPY FLX DX W/COLLJ SPEC WHEN PFRMD 04/01/2017 Colonoscopy FOOT SURGERY HX SIGMOIDOSCOPY FLX DX W/COLLJ SPEC BR/WA IF PFRMD 12/14/2018 Sigmoidoscopy, flexible FAMILY HISTORY Problem Relation Age of Onset Cancer Mother tumor in the abdomen Cancer Father ? does not know Diabetes Father Diabetes Sister Diabetes Brother other (alzheimers) Paternal Grandmother No Known Problems Maternal Grandmother No Known Problems Maternal Grandfather No Known Problems Paternal Grandfather No Known Problems Sister No Known Problems Sister No Known Problems Sister No Known Problems Sister Diabetes Daughter Gestationl Thyroid Son Hypothyroid No Known Problems Son No Known Problems Son Social History Tobacco Use Smoking status: Former Packs/day: 0.50 Years: 15.00 Pack years: 7.50 Types: Cigarettes Quit date: 1986 Years since quittin.9 Smokeless tobacco: Never Vaping Use Vaping Use: Never used Substance Use Topics Alcohol use: No Drug use: No Past medical history, appointments, medications, allergies reviewed. Pertinent Lab/Diagnostic Studies are reviewed and discussed today Current Outpatient Medications: tamsulosin (FLOMAX) 0.4 mg tamsulosin (FLOMAX) 0.4 mg doxycycline monohydrate (MONODOX) 100 mg capsule meloxicam (MOBIC) 15 mg tablet Review of Systems CONSTITUTIONAL: No fevers, chills night sweats, unintended weight loss CARDIOVASCULAR: No chest pain, dyspnea, palpitations, orthopnea, PND, ankle edema. PULM: No dyspnea, unexplained cough. GI: No dysphagia/odynophagia, problematic reflux, constipation, diarrhea, changes in stool habits, hematochezia, melena. : No new urinary complaints, including dysuria, gross hematuria or pyuria. NEURO: No new balance problems, peripheral weakness/paresthesias or numbness of concern. Physical Exam BP 120/62 (BP Site: Left Arm, BP Position: Sitting, BP Cuff Size: Large Adult) Pulse 75 Temp 36.4 ?C (97.6 ?F) Resp 12 Ht 167.6 cm (5' 6 ) Wt 93.9 kg (207 lb) LMP 01/04/2011 SpO2 97% BMI 33.41 kg/m? General appearance: Well appearing, alert, in no acute distress, well nourished. Skin: Skin color, texture, turgor normal, no suspicious rashes or lesions Head: Normocephalic, no masses, lesions, tenderness or abnormalities Eyes: Anicteric sclera. Pupils are equally round and reactive to light. Extraocular movements are intact. Lungs: Lungs clear to auscultation. No wheezing, rhonchi, rales Heart: RRR without murmur, gallop, or rubs. Extremities: No deformities, edema, skin discoloration, clubbing or cyanosis. Good capillary refill. ASSESSMENT/PLAN: 1. Vitamin B12 deficiency - ICD9: 266.2, ICD10: E53.8 (primary diagnosis) - VITAMIN B12 BLOOD 2. Vitamin D deficiency - ICD9: 268.9, ICD10: E55.9 - VITAMIN D 25 HYDROXY 3. Iron deficiency - ICD9: 280.9, ICD10: E61.1 - IR (more content not included)... [facility] 05-06-2022 Instructions Caity Gandhi MD - 05/06/2022 11:56 AM EST BONE MINERAL DENSITY PATIENT INSTRUCTIONS ========= Bone mineral density testing measures the amount of calcium in certain parts of your bones. This information determines how strong your bones are. The test is used to detect osteoporosis, a disease in which the bone's mineral content and density are low, increasing a person's risk of fractures. The lumbar spine (lower back) and the hip are the skeletal sites usually examined. For the test, remember that: 1. You cannot take this test if you are . 2. Eat a normal diet on the day of the test. 3. Take your medications as you normally would. 4. DO NOT take calcium supplements (such as Tums) for 24 hours before the test. 5. On the day of the test, leave valuables (jewelry or credit cards) at home. 6. The test should be performed prior to oral, rectal or IV contrast studies, or at least 7 days after any of these studies. For the test, you may be asked to wear a hospital gown. You will lie on your back, on a padded table, in a comfortable position. Generally, you can resume your usual activities immediately. documented in this encounter [facility] 05-06-2022 Miscellaneous Notes Elba from Dr Landry's office called in and asked for Pts last OV note, med list, and demographics sheet faxed to their office. Faxed to # [phone]. documented in this encounter [facility] 05-06-2022 History of Presen t illness Narrative Reason for Visit Patient presents with: Follow Up Olinda Holder is a 66 year old female who presents here today for Above Complaints.. Health Maintenance COVID-19 VACCINE(1) HIV SCREENING SHINGRIX VACCINE(2 of 3) MAMMOGRAM DTAP,TDAP,TD(2 - Td or Tdap) DEPRESSION ASSESSMENT BONE DENSITY ADVANCE DIRECTIVE DISCUSSION PNEUMOCOCCAL: 65+(1 - PCV) INFLUENZA(1) HPI Knee pain: patient is going to see Dr Woods for her knee pain. Had see Dr Lovell and wanted to a second opinion. Patient was also diagnosed with kidney stones in the recent past, she had b/l kidney stones and some proximal dilatations of the ureters. Patient notes everything was hurting her a lot. Seeing uro in [place], Right now there is no pain, sometimes she has discomfort mopping the floors. HTN: Compliant with medications. Denies any chest pain, palpitations, or edema. No SOB. Doesn't check BP at home generally. Careful with diet to avoid salt, trying to eat more fruits and vegetables, exercises regularly. She is taking vit d and b12. She started taking biotin for hair loss. She tried minoxidil, but since it had a side effects of swelling and not sure if that was from the meloxicam or the minoxidil she stopped it and does not want to try the medication again She has lost 2 pounds of weight. The 10-year ASCVD risk score (Abner RODRIGUEZ, et al., 2019) is: 5.1% Values used to calculate the score: Age: 66 years Sex: Female Is Non- : No Diabetic: No Tobacco smoker: No Systolic Blood Pressure: 120 mmHg Is BP treated: No HDL Cholesterol: 46 mg/dL Total Cholesterol: 184 mg/dL No problem-specific Assessment & Plan notes found for this encounter. PAST MEDICAL HISTORY Diagnosis Date Anemia DJD (degenerative joint disease) Snoring Vertigo Vitamin D deficiency PAST SURGICAL HISTORY Procedure Laterality Date SECTION MULTI>2 COLONOSCOPY FLX DX W/COLLJ SPEC WHEN PFRMD 04/01/2017 Colonoscopy FOOT SURGERY HX SIGMOIDOSCOPY FLX DX W/COLLJ SPEC BR/WA IF PFRMD 12/14/2018 Sigmoidoscopy, flexible FAMILY HISTORY Problem Relation Age of Onset Cancer Mother tumor in the abdomen Cancer Father ? does not know Diabetes Father Diabetes Sister Diabetes Brother other (alzheimers) Paternal Grandmother No Known Problems Maternal Grandmother No Known Problems Maternal Grandfather No Known Problems Paternal Grandfather No Known Problems Sister No Known Problems Sister No Known Problems Sister No Known Problems Sister Diabetes Daughter Gestationl Thyroid Son Hypothyroid No Known Problems Son No Known Problems Son Social History Tobacco Use Smoking status: Former Packs/day: 0.50 Years: 15.00 Pack years: 7.50 Types: Cigarettes Quit date: 1986 Years since quittin.9 Smokeless tobacco: Never Vaping Use Vaping Use: Never used Substance Use Topics Alcohol use: No Drug use: No Past medical history, appointments, medications, allergies reviewed. Pertinent Lab/Diagnostic Studies are reviewed and discussed today Current Outpatient Medications: tamsulosin (FLOMAX) 0.4 mg tamsulosin (FLOMAX) 0.4 mg doxycycline monohydrate (MONODOX) 100 mg capsule meloxicam (MOBIC) 15 mg tablet Review of Systems CONSTITUTIONAL: No fevers, chills night sweats, unintended weight loss CARDIOVASCULAR: No chest pain, dyspnea, palpitations, orthopnea, PND, ankle edema. PULM: No dyspnea, unexplained cough. GI: No dysphagia/odynophagia, problematic reflux, constipation, diarrhea, changes in stool habits, hematochezia, melena. : No new urinary complaints, including dysuria, gross hematuria or pyuria. NEURO: No new balance problems, peripheral weakness/paresthesias or numbness of concern. Physical Exam BP 120/62 (BP Site: Left Arm, BP Position: Sitting, BP Cuff Size: Large Adult) Pulse 75 Temp 36.4 C (97.6 F) Resp 12 Ht 167.6 cm (5' 6 ) Wt 93.9 kg (207 lb) LMP 01/04/2011 SpO2 97% BMI 33.41 kg/m General appearance: Well appearing, alert, in no acute distress, well nourished. Skin: Skin color, texture, turgor normal, no suspicious rashes or lesions Head: Normocephalic, no masses, lesions, tenderness or abnormalities Eyes: Anicteric sclera. Pupils are equally round and reactive to light. Extraocular movements are intact. Lungs: Lungs clear to auscultation. No wheezing, rhonchi, rales Heart: RRR without murmur, gallop, or rubs. Extremities: No deformities, edema, skin discoloration, clubbing or cyanosis. Good capillary refill. ASSESSMENT/PLAN: 1. Vitamin B12 deficiency - ICD9: 266.2, ICD10: E53.8 (primary diagnosis) - VITAMIN B12 BLOOD 2. Vitamin D deficiency - ICD9: 268.9, ICD10: E55.9 - VITAMIN D 25 HYDROXY 3. Iron deficiency - ICD9: 280.9, ICD10: E61.1 - IRON + TIBC - FERRITIN BLD 4. Anemia, unspecified type - ICD9: 285.9, ICD10: D64.9 5. Hair loss - ICD9: 704.00, ICD10: L65.9 - TSH BLD 6. Screening for HIV (human immunodeficiency virus) - ICD9: V73.89, ICD10: Z11.4 - HIV 1 2 COMBO(AG/AB),WITH REFLEX TO DIFFERENTIATION 7. Screening for osteoporosis - ICD9: V82.81, ICD10: Z13.820 - DXA-AXIAL SKELETON 8. Asymptomatic menopause - ICD9: V49.81, ICD10: Z78.0 - DXA-AXIAL SKELETON 9. Osteoporosis, unspecified osteoporosis type, unspecified pathological fracture presence - ICD9: 733.00, ICD10: M81.0 - Reviewed the need for Calcium and Vitamin D supplements and weight bearing exercise as tolerated - DXA-AXIAL SKELETON Caity Gandhi MD documented in this encounter [facility] 04-23-2022 Miscellaneous Notes Pt picked up Patient's called on her behalf requesting disc of XR Knee from 12/31/21, the XR report, and print out of the office visit with Dr. Lovell from 01/17/22. She is taking records to another provider for a second opinion. 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 Thank you. documented in this encounter [facility] 04-04-2022 Miscellaneous Notes Called patient. Verified name and date of . Patient scheduled for April 09, 2022. Note in [facility] states to see urology in [place]. Cancelled appointment with Raphael Jung PA-C April 09, 2022 and patient aware. States she is to call and return message from yesterday from message left on her phone about scheduling urology appointment. Reports having a very busy home life and uncertain of availability for appointments. Juliana Jacobson LPN documented in this encounter [facility] 04-02-2022 Miscellaneous Notes Notified pt of below instructions, soonest urology appt is 04/[address] Reyna in [place], patient stated she did not receive flomax yesterday, will follow up with the pharmacy today. If any problems will return call to office. Traci Zarate Please schedule patient with urology in [place] for renal stone with mild hydronephrosis. Can cancel her current urology appointment in [place] next week. Recommend ER sooner if unable to void >8 hours, vomiting,worsening pain, fever >100. Continue flomax, I will send an additional Rx for 7 days. Thank you, No Farnsworth PA-C The following approved medication requests have been transmitted electronically. Requested Prescriptions Signed Prescriptions Disp Refills tamsulosin (FLOMAX) 0.4 mg 7 capsule 0 Sig: Take 1 capsule by mouth daily at bedtime. Authorizing Provider: NO FARNSWORTH PA-C documented in this encounter [facility] 04-01-2022 Miscellaneous Notes Received message from staff at [facility] requesting patient be scheduled for appointment. Informed no available appointments this week. Called patient and offered to check availability elsewhere. 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 Patient chose April 12, 2022 at 1520. Patient states being on Flomax and no need to [place] for appointment because there's nothing that can be done anyways. Juliana Jacobson LPN documented in this encounter [facility] 04-01-2022 Note HNO ID: [id number] Author: Gracy Ventura RDMS Service: ? Author Type: Gaming Floor Supervisor Type: Progress Notes Filed: 04/01/2022 2:23 PM Note Text: Radiology Service Progress Note PATIENT NAME: Olinda Holder DATE OF SERVICE: April 01, 2022 TIME: 2:23 PM PATIENT IDENTITY VERIFICATION COMPLETED USING TWO (2) IDENTIFIERS: Name and Date of confirmed by patient verbally. FALL SCREENING: Has the patient had 2 falls in the last year or 1 fall with injury or currently using an Ambulatory Assistive Device (Walker, Cane, Wheelchair, Crutches, etc.)? No PATIENT GENDER DATA: Female. status: : No status: NO. PATIENT RELEVANT IMPLANT DATA REVIEWED: Not Applicable RADIOLOGY DEPARTMENT: Ultrasound PERIPHERAL IV DATA: Not applicable SIGNED BY: Gracy Ventura RDMS April 01, 2022 2:[address] [facility] 04-01-2022 Miscellaneous Notes Pt notified of message below. Pt voiced understanding. CAll pt with appt with urology. Pt prefers appt. Also pt would like a referral to Dr. Landry for hemorrhoid. Daisy Turner LPN Please let patient know that her US did show a kidney stone in the right and left kidney. The right kidney shows hydronephrosis, dilation of the ureter, on the right side. Please help patient schedule with urology tomorrow or Friday for evaluation. I am going to start her on Flomax to help her void. If she develops worsening pain, fever >100, vomiting, or unable to void >8 hours to seek care in the ER. Continue the bactrim prescribed. No Farnsworth PA-C 04/01/2022 documented in this encounter [facility] 04-01-2022 Note HNO ID: [id number] Author: No Farnsworth PA-C Service: ? Author Type: Physician Blade Grinder Type: Progress Notes Filed: 04/02/2022 10:36 AM Note Text: 04/01/2022 Patient presents with: Low Back Pain: nausea x this am SUBJECTIVE: This is a 66 year old that is here today for Complaint(s) of low back discomfort x this morning. Had some hot flashes this morning as well. + nausea. 1 episode of vomiting after drinking some tea this morning. Feels like difficulty urinating, was able to give a specimen today. Denies fever, abdominal pain, dysuria. PMH nephrolithiasis 30+ years ago. History of uterine prolapse. Also had some difficulty having a BM, small than normal and felt pain with her hemorrhoid. No longer having pain currently. No blood. Sigmoidoscopy 12/2018. PAST MEDICAL HISTORY Diagnosis Date Anemia DJD (degenerative joint disease) Snoring Vertigo Vitamin D deficiency ALLERGIES Patient has no known allergies. MEDICATIONS Current Outpatient Medications Medication Sig doxycycline monohydrate (MONODOX) 100 mg capsule Take one pill twice daily with food for 7 days. Avoid sun exposure (Patient not taking: Reported on 01/17/2022) meloxicam (MOBIC) 15 mg tablet Take 1 tablet by mouth once daily. With food. (Patient not taking: Reported on 04/01/2022) No current facility-administered medications for this visit. SOCIAL HISTORY Social History Tobacco Use Smoking status: Former Packs/day: 0.50 Years: 15.00 Pack years: 7.50 Types: Cigarettes Quit date: 1986 Years since quittin.8 Smokeless tobacco: Never Vaping Use Vaping Use: Never used Substance Use Topics Alcohol use: No Drug use: No REVIEW OF SYSTEMS See HPI OBJECTIVE: BP 136/82 Pulse 66 Temp 36.2 ?C (97.1 ?F) Resp 16 Wt 94.8 kg (209 lb) LMP 01/04/2011 SpO2 98% BMI 33.73 kg/m? APPEARANCE Well appearing, alert, in no acute distress, well-hydrated, well nourished. NECK Supple, no adenopathy; thyroid symmetric, normal size, no bruits HEART RRR with normal S1 and S2 LUNG clear to auscultation, No wheezing, rhonchi, rales. ABDOMEN bowel sounds normoactive, soft, mild right lower pelvic TTP. non-distended, without organomegaly or palpable masses, no rebound, rigidity or guarding. Negative McBurney's, Velasquez's, Rovsing's. RECTAL + marble sized mildly thrombosed hemorrhoid without TTP. No active bleeding. BACK + mild right CVA TTP ASSESSMENT/PLAN: 1. Acute midline low back pain without sciatica - ICD9: 724.2, ICD10: M54.50 (primary diagnosis) Cover with bactrim for possible UTI, send culture - UA DIP, URINE (POC) - URINE CULTURE 2. Right flank pain - ICD9: 789.09, ICD10: R10.9 - Antibiotic treatment with Bactrim DS BID - Work up with renal US today - US KIDNEY/BLADDER - SULFAMETHOXAZOLE 800 MG-TRIMETHOPRIM 160 MG TABLET Reviewed red flags and when to seek care sooner in ER 3. External hemorrhoid - ICD9: 455.3, ICD10: K64.4 Mildly thrombosed hemorrhoid, non-tender. Patient declines schedules with general surgery today. She is going to contact Dr. Dyer's office outside [facility]. Will place consult to GI if needed. Reviewed red flags and when to seek care sooner. - CONSULT TO GASTROENTEROLOGY The patient indicates understanding of these issues and agrees with the plan. No Farnsworth PA-C I spent a total of 40 minutes on the date of the service which included [id number] patient care, completing clinical documentation, obtaining and/or reviewing separately obtained history, performing a medically appropriate examination, counseling and educating the patient/family/caregiver, ordering medications, tests, or procedures, communicating with other HCPs (not separately reported), communicating results to the patient/family/caregiver, and care coordination (not separately reported). [facility] 04-01-2022 History of Presen t illness Narrative Radiology Service Progress Note PATIENT NAME: Olinda Holder DATE OF SERVICE: April 01, 2022 TIME: 2:23 PM PATIENT IDENTITY VERIFICATION COMPLETED USING TWO (2) IDENTIFIERS: Name and Date of confirmed by patient verbally. FALL SCREENING: Has the patient had 2 falls in the last year or 1 fall with injury or currently using an Ambulatory Assistive Device (Walker, Cane, Wheelchair, Crutches, etc.)? No PATIENT GENDER DATA: Female. status: : No status: NO. PATIENT RELEVANT IMPLANT DATA REVIEWED: Not Applicable RADIOLOGY DEPARTMENT: Ultrasound PERIPHERAL IV DATA: Not applicable SIGNED BY: Gracy Ventura RDMS April 01, 2022 2:23 PM documented in this encounter [facility] 04-01-2022 Miscellaneous Notes Agree with nursing advice. Destiney Zazueta APRN.KHURRAM Patient called with c/o right sided flank pain, pain rate of 8-9 out of 10, and difficulty emptying her bladder. Symptoms began this morning. States she had a hot flash, became drenched in sweat, and vomited once. Denies Fever. Call was transferred to [facility] from Dr. Gandhi's office. Denies pelvic pain, cramping, or vaginal bleeding. Patient was advised to visit ER to rule out kidney stone/infection. Patient's also spoke to nurse and expressed his dissatisfaction with the ER. Advised that patient could also be seen with Urgent Care. Last annual in 2019. Encouraged patient to schedule an annual exam with Destiney Zazueta when she is feeling better. Liane Bobby RN documented in this encounter [facility] 04-01-2022 History of Presen t illness Narrative 04/01/2022 Patient presents with: Low Back Pain: nausea x this am SUBJECTIVE: This is a 66 year old that is here today for Complaint(s) of low back discomfort x this morning. Had some hot flashes this morning as well. + nausea. 1 episode of vomiting after drinking some tea this morning. Feels like difficulty urinating, was able to give a specimen today. Denies fever, abdominal pain, dysuria. PMH nephrolithiasis 30+ years ago. History of uterine prolapse. Also had some difficulty having a BM, small than normal and felt pain with her hemorrhoid. No longer having pain currently. No blood. Sigmoidoscopy 12/2018. PAST MEDICAL HISTORY Diagnosis Date Anemia DJD (degenerative joint disease) Snoring Vertigo Vitamin D deficiency ALLERGIES Patient has no known allergies. MEDICATIONS Current Outpatient Medications Medication Sig doxycycline monohydrate (MONODOX) 100 mg capsule Take one pill twice daily with food for 7 days. Avoid sun exposure (Patient not taking: Reported on 01/17/2022) meloxicam (MOBIC) 15 mg tablet Take 1 tablet by mouth once daily. With food. (Patient not taking: Reported on 04/01/2022) No current facility-administered medications for this visit. SOCIAL HISTORY Social History Tobacco Use Smoking status: Former Packs/day: 0.50 Years: 15.00 Pack years: 7.50 Types: Cigarettes Quit date: 1986 Years since quittin.8 Smokeless tobacco: Never Vaping Use Vaping Use: Never used Substance Use Topics Alcohol use: No Drug use: No REVIEW OF SYSTEMS See HPI OBJECTIVE: BP 136/82 Pulse 66 Temp 36.2 C (97.1 F) Resp 16 Wt 94.8 kg (209 lb) LMP 01/04/2011 SpO2 98% BMI 33.73 kg/m APPEARANCE Well appearing, alert, in no acute distress, well-hydrated, well nourished. NECK Supple, no adenopathy; thyroid symmetric, normal size, no bruits HEART RRR with normal S1 and S2 LUNG clear to auscultation, No wheezing, rhonchi, rales. ABDOMEN bowel sounds normoactive, soft, mild right lower pelvic TTP. non-distended, without organomegaly or palpable masses, no rebound, rigidity or guarding. Negative McBurney's, Velasquez's, Rovsing's. RECTAL + marble sized mildly thrombosed hemorrhoid without TTP. No active bleeding. BACK + mild right CVA TTP ASSESSMENT/PLAN: 1. Acute midline low back pain without sciatica - ICD9: 724.2, ICD10: M54.50 (primary diagnosis) Cover with bactrim for possible UTI, send culture - UA DIP, URINE (POC) - URINE CULTURE 2. Right flank pain - ICD9: 789.09, ICD10: R10.9 - Antibiotic treatment with Bactrim DS BID - Work up with renal US today - US KIDNEY/BLADDER - SULFAMETHOXAZOLE 800 MG-TRIMETHOPRIM 160 MG TABLET Reviewed red flags and when to seek care sooner in ER 3. External hemorrhoid - ICD9: 455.3, ICD10: K64.4 Mildly thrombosed hemorrhoid, non-tender. Patient declines schedules with general surgery today. She is going to contact Dr. Dyer's office outside [facility]. Will place consult to GI if needed. Reviewed red flags and when to seek care sooner. - CONSULT TO GASTROENTEROLOGY The patient indicates understanding of these issues and agrees with the plan. No Farnsworth PA-C I spent a total of 40 minutes on the date of the service which included [id number] patient care, completing clinical documentation, obtaining and/or reviewing separately obtained history, performing a medically appropriate examination, counseling and educating the patient/family/caregiver, ordering medications, tests, or procedures, communicating with other HCPs (not separately reported), communicating results to the patient/family/caregiver, and care coordination (not separately reported). documented in this encounter [facility] 02-01-2022 Miscellaneous Notes Pt notified and verbalizes understanding. She is still having the same pain in the back of the knee that feels like a tendon. She will make appt if symptoms persist. Kimberly Bunch Left message for patient to call office. Images from the original note were not included. Lloyd Lovell MD You; [facility] 8 hours ago (8:44 AM) I'm not sure at all about the cramping . I suspect because the knee was bothering her (I.e.limping or favoring it) the calf muscle feels tight or cramping. She has quite significant arthritis in the knees. This may end up being a problem moving forward for her. Aside from everything we reviewed in the office about OA and knee pain, I don't really have advise about the cramping. Possible to review with her primary care physician to be sure it is not medicine related if it is muscular cramping. Certainly if any symptoms are concerning for DVT in the leg, that needs to be evaluated with an ultrasound. BP Patient calling and states she was seen last for her knee pain. She the tendon is still cramping in her leg. Asking if there is anything to do for it? Had an injection last week and her knees are still knocking When she exercises the pressure aggrivates it. Has been taking Meloxicam and helps with some of the knee pain. documented in this encounter [facility] 01-17-2022 History of Presen t illness Narrative Associated Order(s): Large Joint Arthro/Inj: bilateral knee joints Post-Procedure Diagnose(s): Chronic pain of both knees; Primary osteoarthritis of both knees Lloyd Lovell MD Department of Orthopaedics Orthopaedics [address] [facility] [address] Dept: [phone] Dept January 17, 2022 Consultation requested by Mona Cota for an opinion regarding bilateral knee pain. My final recommendations will be communicated back to the requesting physician by way of shared Medical record or letter to requesting physician via US mail. CHIEF COMPLAINT: New and Pain of the Left Knee HPI Patient here today with her for left knee pain, left ankle swelling and right knee popping. Patient reports the left knee is the reason for the appointment. She was sitting in her car when the knee pain started. Denies any prior injury. Denies any pain today. She has been taking meloxicam. X-ray completed on 12/31/2021. ASSESSMENT: M25.561, M25.562, G89.29 Chronic pain of both knees (primary encounter diagnosis) M17.0 Primary osteoarthritis of both knees PLAN: We had a lengthy discussion about her knee arthritis and treatment for that. I encouraged a strengthening program, weight loss, anti-inflammatory and she would like to try injections today. FOLLOW UP INSTRUCTIONS: As needed Ms. Olinda Holder was advised as to contrast therapies and/or to take analgesics/anti-inflammatories as needed and all contraindications were reviewed. OBJECTIVE: Ms. Olinda Holder is a pleasant 66 year old in no apparent distress. Gen:LMP 01/04/2011 nl development, non obese, no deformities ENT: Normocephalic, normal hearing, moist mucosa CV: Pulses:DP/PT= 2+ and symmetric, capillary refill < 2 secs, no peripheral edema/varicosities Skin: no rash, bruising or lesions. Good turgor. Psych: cooperative and appropriate, alert and oriented x 3, good mood and affect. Musculoskeletal: Patient walks with mild antalgia, normal station. Hip motion without pain. Each knee with mild effusion. Patella tracks normally. There is minimal patellar crepitance. No pain along the medial or lateral facets. Range of motion 0-120 degrees, bilaterally. At each knee, positive medial, without lateral joint line pain on palpation. Mild fullness and tenderness in the popliteal fossa of the right knee. ligamentous exam with stable endpoint on varus and valgus stress testing at 0 and 30 degrees, however some mild instability and medial joint space widening over the right knee with valgus stress.. Vanita's examination is negative. Posterior drawer is negative. Negative McMurrays, without palpable click. Extremity is warm and well perfused. Sensation is grossly intact to light touch, subjectively. Large Joint Arthro/Inj: bilateral knee joints Informed Consent Consent Obtained: Verbal [place] Protocol A moment to CARE was completed. SIGN IN Personnel directly involved with the procedure wore the appropriate PPE. Special Equipment: N/A Patient/Surrogate Stated/Verified: Patient name, Date of , Relevant allergies and Intended procedure TIME OUT Intended patient and procedure match the source document(s). Consent documented and matches the intended procedure. Relevant labs, photos, and/or imaging studies have been reviewed. Correct side/site marked and visible. Medications required for procedure verified. No fire risk assessment and interventions applicable. No implant(s) inserted. 01/17/2022 3:50 PM The procedure site was prepped in the usual sterile fashion. Site: bilateral knee joints Medications (Right): 6 mg betamethasone acetate-betamethasone sodium phosphate 6 mg/mL Medications (Left): 6 mg betamethasone acetate-betamethasone sodium phosphate 6 mg/mL Anesthetics (Right): 4 mL lidocaine (PF) 10 mg/mL (1 %) Anesthetics (Left): 4 mL lidocaine (PF) 10 mg/mL (1 %) Outcome: Tolerated well, no immediate complications Post-injection instructions were reviewed with the patient and the patient voiced understanding of these instructions. SIGN OUT No specimen collected. All instruments, equipment, possible retained foreign bodies accounted for. Post-procedure follow-up management communicated and Plan of Care Visit completed when applicable IMAGING: IMPRESSION: Degenerative changes in the left knee with joint effusion. Executive Office Manager: PSCB Transcribe Date/Time: Jan 01 2022 11:24A Dictated by : GORDO SUTTON MD This examination was interpreted and the report reviewed and electronically signed by: GORDO SUTTON MD on Jan 01 2022 11:26AM EST Results-Findings * * *Final Report* * * DATE OF EXAM: Dec 31 2021 12:28PM WOX [id number] - XR KNEE 4V AP/PA BOTH+LAT/NITISH LT / PROCEDURE REASON: multiple diagnoses * * * * Physician Interpretation * * * * EXAM TITLE: XR KNEE 4V AP/PA BOTH+LAT/NITISH LT EXAM DATE/TIME: 12/31/2021 12:28 PM COMPARISON: None. CLINICAL INDICATION/HISTORY: Left knee pain. TECHNIQUE: AP/PA, lateral and sunrise views of the left knee are presented. FINDINGS: No acute fractures or subluxations are noted. There appears be medial and lateral compartmental joint space narrowing. Mild osteophyte formation/bony spurs seen. There is patellar enthesophyte formation. Small to moderate joint effusion demonstrated on lateral view. The mineralization of the bones is normal. There is no significant soft tissue swelling. Others: There are degenerative changes in the right knee. Supporting Subjective Information Below: Past Medical History: PAST MEDICAL HISTORY Diagnosis Date Anemia DJD (degenerative joint disease) Snoring Vertigo Vitamin D deficiency Past Surgical History: PAST SURGICAL HISTORY Procedure Laterality Date SECTION MULTI>2 COLONOSCOPY FLX DX W/COLLJ SPEC WHEN PFRMD 04/01/2017 Colonoscopy FOOT SURGERY HX SIGMOIDOSCOPY FLX DX W/COLLJ SPEC BR/WA IF PFRMD 12/14/2018 Sigmoidoscopy, flexible Family History: FAMILY HISTORY Problem Relation Age of Onset Cancer Mother tumor in the abdomen Cancer Father ? does not know Diabetes Father Diabetes Sister Diabetes Brother other (alzheimers) Paternal Grandmother No Known Problems Maternal Grandmother No Known Problems Maternal Grandfather No Known Problems Paternal Grandfather No Known Problems Sister No Known Problems Sister No Known Problems Sister No Known Problems Sister Diabetes Daughter Gestationl Thyroid Son Hypothyroid No Known Problems Son No Known Problems Son Social History: Social History Tobacco Use Smoking status: Former Smoker Packs/day: 0.50 Years: 15.00 Pack years: 7.50 Types: Cigarettes Quit date: 1986 Years since quittin.6 Smokeless tobacco: Never Used Vaping Use Vaping Use: Never used Substance Use Topics Alcohol use: No Drug use: No Medications: Current Outpatient Medications Medication Sig meloxicam (MOBIC) 15 mg tablet Take 1 tablet by mouth once daily. With food. doxycycline monohydrate (MONODOX) 100 mg capsule Take one pill twice daily with food for 7 days. Avoid sun exposure (Patient not taking: Reported on 01/17/2022) No current facility-administered medications for this visit. Allergies: Patient has no known allergies. ROS: General (negative for fatigue, malaise, weight loss/gain) HEENT (negative for headache, earache, recent vision changes, sinus pain, sore throat) Respiratory (no recent shortness of breath, hemoptysis) CV (negative for chest tightness, palpitations) Musculoskeletal (see HPI) Psych (no depression, anxiety) REFERRING PHYSICIAN: Ms. Olinda Holder was referred to me for consultation by the following physician. This consultation note will be sent to the following physician by either mail or electronic medical record. Caity Gandhi [address] [facility] [id number] Caity Gandhi MD [address] [facility] [id number] Lloyd Lovell MD documented in this encounter [facility] 01-02-2022 Miscellaneous Notes Pt called and is notified of providers results and instructions. Pt voices understanding. Pt put through to scheduling to set up orthopedic appointment. Vanessa Osman RN X-rays showed arthritis and fluid on the knee. Schedule with orthopedics as recommended at office visit Mona Cota APRN.KHURRAM Mona, I know you wont mind addressing this Regards, Caity Gandhi MD Pt called in asking for results from x-rays. Please call and advise. documented in this encounter [facility] 12-31-2021 History of Presen t illness Narrative CC: Patient presents with: Left Knee Pain: x 2 months HPI Olinda Holder is a 66 year old female who presents today for left knee pain for years, worsening over the past few months. Located: entire left knee. Described as sharp and shooting Injury: No Aggravated by: going up stairs and bending knee Associated symptoms: intermittent swelling and increased warmth Knee popping or clicking with movement? Yes Knee locking or feel like is giving-out? Yes Does the knee pain wake you up at night:Yes Previous injury: No Previous surgery: No Treatment: Aleve with mild relief REVIEW OF SYSTEMS See HPI PAST MEDICAL HISTORY Diagnosis Date Anemia DJD (degenerative joint disease) Snoring Vertigo Vitamin D deficiency PAST SURGICAL HISTORY Procedure Laterality Date SECTION MULTI>2 COLONOSCOPY FLX DX W/COLLJ SPEC WHEN PFRMD 04/01/2017 Colonoscopy FOOT SURGERY HX SIGMOIDOSCOPY FLX DX W/COLLJ SPEC BR/WA IF PFRMD 12/14/2018 Sigmoidoscopy, flexible ALLERGIES Patient has no known allergies. MEDICATIONS doxycycline monohydrate (MONODOX) 100 mg capsule Take one pill twice daily with food for 7 days. Avoid sun exposure FAMILY HISTORY Problem Relation Age of Onset Cancer Mother tumor in the abdomen Cancer Father ? does not know Diabetes Father Diabetes Sister Diabetes Brother other (alzheimers) Paternal Grandmother No Known Problems Maternal Grandmother No Known Problems Maternal Grandfather No Known Problems Paternal Grandfather No Known Problems Sister No Known Problems Sister No Known Problems Sister No Known Problems Sister Diabetes Daughter Gestationl Thyroid Son Hypothyroid No Known Problems Son No Known Problems Son Social History Tobacco Use Smoking status: Former Smoker Packs/day: 0.50 Years: 15.00 Pack years: 7.50 Types: Cigarettes Quit date: 1986 Years since quittin.5 Smokeless tobacco: Never Used Vaping Use Vaping Use: Never used Substance Use Topics Alcohol use: No Drug use: No PHYSICAL EXAM BP 126/72 Pulse 66 Resp 18 Wt 94.8 kg (209 lb) LMP 01/04/2011 BMI 33.73 kg/m General Appearance: well appearing, in no acute distress, alert Musculoskeletal: Left knee tenderness of the entire knee. Flexion:Limitation: Yes, Pain:Yes; Extension:Limitation:No, Pain:No. Laxity: No Lower extremities: no edema in LE bilaterally, good distal pulses. Muscle strength- 5/5 bilaterally ASSESSMENT/PLAN: 1. Chronic pain of left knee - ICD9: 719.46, 338.29, ICD10: M25.562, G89.29 - XR KNEE GENERAL 4V AP BOTH/PA BOTH/LAT/MERC LEFT today - Meloxicam as needed for pain - Discussed non-medication measures including ice, compression and rest - CONSULT TO ORTHOPAEDICS Prescription instructions reviewed with patient as applicable. Potential red flag symptoms discussed with the patient. Reviewed appropriate action plan to take if red flag symptoms occur. Patient agreeable to treatment plan. 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 Is stressed with family demands. She seems to be doing well with eating right. But has stopped exercising. She is going to start exercising. Fatigue 12/02/2013 01/20/2023 Last Assessment & Plan: Been very tired recently, Feels like she has a mind fog. Cannot do as much work as she did in the past. documented as of this encounter (statuses as of 01/23/2023) [facility] Diagnosis Chronic pain of left knee- Primary Pain in joint, lower leg [facility] Diagnosis Encounter for screening mammogram for breast cancer [facility] Diagnosis Chronic pain of both knees- Primary Primary osteoarthritis of both knees Primary localized osteoarthrosis, lower leg Chronic pain of left knee Pain in joint, lower leg [facility] Diagnosis Hydronephrosis with urinary obstruction due to renal calculus- Primary Other hydronephrosis Nephrolithiasis Calculus of kidney [facility] Diagnosis Right flank pain Abdominal pain, unspecified site [facility] Diagnosis Acute midline low back pain without sciatica- Primary Right flank pain Abdominal pain, unspecified site External hemorrhoid External hemorrhoids without mention of complication [facility] Diagnosis Vitamin B12 deficiency- Primary Other B-complex deficiencies Vitamin D deficiency Unspecified vitamin D deficiency Iron deficiency Iron deficiency anemia, unspecified Anemia, unspecified type Hair loss Alopecia, unspecified Screening for HIV (human immunodeficiency virus) Special screening examination for other specified viral diseases Screening for osteoporosis Special screening for osteoporosis Asymptomatic menopause Osteoporosis, unspecified osteoporosis type, unspecified pathological fracture presence Encounter for immunization Need for other specified prophylactic vaccination against single bacterial disease [facility] Diagnosis Other hydronephrosis Nephrolithiasis Calculus of kidney [facility] Diagnosis Encounter for screening mammogram for breast cancer [facility] Diagnosis Primary osteoarthritis of right knee- Primary Primary localized osteoarthrosis, lower leg Chronic pain of right knee Pre-op evaluation Preoperative examination, unspecified documented in this encounter [facility] for referral (narrative)* Diagnostic Procedure Only (Routine) - Pending Review Specialty Diagnoses / Procedures Referred By Contac t Referred To Contact BR IMAGING Diagnoses Encounter for screening mammogram for breast cancer Procedures JOO SCREENING SCREENING MAMMOGRAPHY BI 2-VIEW BREAST INC Caity Lopez MD [address] [place] [address] Br Imaging [address] [place] [address] Referral ID Status Reason Start Date Expiration Date Visits Requested Visits Authorized [id number] Pending Review Auto-Generat ed Referral 01/16/2022 02/15/2023 1 1 [facility] for referral (narrative)* Diagnostic Procedure Only (Urgent) - Closed Specialty Diagnoses / Procedures Referred By Kamran t Referred To Contact US IMAGING Diagnoses Right flank pain Procedures US KIDNEY/BLADDER US RETROPERITONEAL REAL TIME W/IMAGE COMPLETE No Farnsworth PA-C [address] [place] [address] Us Imaging Referral ID Status Reason Start Date Expiration Date V isits Requested Visits Authorized [id number] Closed Auto-Generate d Referral 04/01/2022 05/01/2023 1 1 [facility] for referral (narrative)* Diagnostic Procedure Only (Routine) - Pending Review Specialty Diagnoses / Procedures Referred By Kamran saini Referred To Contact BR IMAGING Diagnoses Encounter for screening mammogram for breast cancer Procedures JOO SCREENING SCREENING MAMMOGRAPHY BI 2-VIEW BREAST INC Caity Lopez MD [address] [place] [address] Br Imaging [address] [place] [address] Referral ID Status Reason Start Date Expiration Date Visits Requested Visits Authorized [id number] Pending Review Auto-Generat ed Referral 01/08/2023 02/07/2024 1 1 T [facility] Reason for Referral Specialty Diagnoses / Procedures Referred By Kamran t Referred To Contact Orthopedics Diagnoses Chronic pain of left knee Procedures CONSULT TO ORTHOPAEDICS OFFICE/OUTPATIENT NEW HIGH MDM 60-74 MINUTES 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, 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, [employer]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 [address] [place] [address] Referral ID Status Reason Start Date Expiration Date Visits Requested Visits Authorized [id number] Pending Review PCP Requested Referral 12/31/2021 12/31/2022 1 1 Specialty Diagnoses / Procedures Referred By Contac t Referred To Contact XR IMAGING Diagnoses Chronic pain of left knee Procedures XR KNEE GENERAL 4V AP BOTH/PA BOTH/LAT/MERC LEFT RADIOLOGIC EXAM KNEE COMPLETE 4/MORE VIEWS 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, 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, [employer]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 [address] [place] [address] Xr Imaging Referral ID Status Reason Start Date Expiration Date V isits Requested Visits Authorized [id number] Closed Auto-Generate d Referral 12/31/2021 01/30/2023 1 1 Specialty Diagnoses / Procedures Referred By Contac t Referred To Contact Urology Diagnoses Other hydronephrosis Nephrolithiasis Procedures CONSULT TO UROLOGY OFFICE/OUTPATIENT NEW HIGH MDM 60-74 MINUTES No Farnsworth PA-C [address] [place] [id number] Referral ID Status Reason Start Date Expiration Date Visits Requested Visits Authorized [id number] Pending Review PCP Requested Referral 2 04/01/2023 1 1 Specialty Diagnoses / Procedures Referred By Contac t Referred To Contact Gastroenterology Diagnoses External hemorrhoid Procedures CONSULT TO GASTROENTEROLOGY OFFICE/OUTPATIENT NEW HIGH MDM 60-74 MINUTES No Farnsworth PA-C [address] [place] [address] Referral ID Status Reason Start Date Expiration Date Visits Requested Visits Authorized [id number] Pending Review PCP Requested Referral 2 04/01/2023 1 1 Specialty Diagnoses / Procedures Referred By Contac t Referred To Contact US IMAGING Diagnoses Right flank pain Procedures US KIDNEY/BLADDER US RETROPERITONEAL REAL TIME W/IMAGE COMPLETE No Farnsworth PA-C [address] [place] [address] Us Imaging Referral ID Status Reason Start Date Expiration Date V isits Requested Visits Authorized [id number] Closed Auto-Generate d Referral 04/01/2022 05/01/2023 1 1 Specialty Diagnoses / Procedures Referred By Contac t Referred To Contact CT IMAGING Diagnoses Other hydronephrosis Nephrolithiasis Procedures CT FLANK WO IVCON CT ABD & PELVIS W/O CONTRAST Antonia Miranda Jr., MD [address] [place] [address] Ct Imaging Referral ID Status Reason Start Date Expiration Date Visits Requested Visits Authorized [id number] Pending Review Auto-Generat ed Referral 2 06/13/2023 1 1 Advance Directives No Advanced Directives Records FoundDocuments on File Type Date 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 Advance Directive(s) 12/14/2018 7:03 AM Advance Directive(s) 11/25/2018 4:43 PM Advance Directive(s) 04/01/2017 7:32 AM Medications Administered Section Inactive Administered Medications - up to 3 most recent administrations Medication Order MAR Action Action Date Dose Rate Site betamethasone acetate-betamethasone sodium phosphate 6 mg injection (CELESTONE) 6 mg, Injection - FOR ORTHO USE ONLY, ONE TIME INJECTION, 1 dose, Starting on Katherine 8 at 1550, Until Katherine 8 at 1550 Given 01/17/2022 3:50 PM EDT 6 mg lidocaine (PF) 10 mg/mL (1 %) 4 mL injection (XYLOCAINE) 4 mL, Injection - FOR ORTHO USE ONLY, ONE TIME INJECTION, 1 dose, Starting on Katherine 8 at 1550, Until Katherine 01/17/22 at 1550 Given 01/17/2022 3:50 PM EDT 4 mL Summary Purpose Family History No Family History Records FoundNo Family History Records FoundNo Family History Records Found Additional Source Comments Source Comments (unrecognize d section and content) In the event this informatio n is protected by the Federal Confidentiality of Alcohol and Drug Abuse Patient Records regulations: The Federal rules restrict any use of the information to criminally investigate or prosecute any alcohol or drug abuse patient.[facility] the event this information is protected by the Federal Confidentiality of Alcohol and Drug Abuse Patient Records regulations: The Federal rules restrict any use of the information to criminally investigate or prosecute any alcohol or drug abuse patient.[facility] System[facility] the event this information is protected by the Federal Confidentiality of Alcohol and Drug Abuse Patient Records regulations: The Federal rules restrict any use of the information to criminally investigate or prosecute any alcohol or drug abuse patient.[facility] System[facility] the event this information is protected by the Federal Confidentiality of Alcohol and Drug Abuse Patient Records regulations: The Federal rules restrict any use of the information to criminally investigate or prosecute any alcohol or drug abuse patient.[facility] System[facility] the event this information is protected by the Federal Confidentiality of Alcohol and Drug Abuse Patient Records regulations: The Federal rules restrict any use of the information to criminally investigate or prosecute any alcohol or drug abuse patient.[facility] SystemIn the event this information is protected by the Federal Confidentiality of Alcohol and Drug Abuse Patient Records regulations: The Federal rules restrict any use of the information to criminally investigate or prosecute any alcohol or drug abuse patient.[facility] SystemIn the event this information is protected by the Federal Confidentiality of Alcohol and Drug Abuse Patient Records regulations: The Federal rules restrict any use of the information to criminally investigate or prosecute any alcohol or drug abuse patient.[facility] SystemIn the event this information is protected by the Federal Confidentiality of Alcohol and Drug Abuse Patient Records regulations: The Federal rules restrict any use of the information to criminally investigate or prosecute any alcohol or drug abuse patient.[facility] SystemIn the event this information is protected by the Federal Confidentiality of Alcohol and Drug Abuse Patient Records regulations: The Federal rules restrict any use of the information to criminally investigate or prosecute any alcohol or drug abuse patient.[facility] System[facility] the event this information is protected by the Federal Confidentiality of Alcohol and Drug Abuse Patient Records regulations: The Federal rules restrict any use of the information to criminally investigate or prosecute any alcohol or drug abuse patient.[facility] SystemIn the event this information is protected by the Federal Confidentiality of Alcohol and Drug Abuse Patient Records regulations: The Federal rules restrict any use of the information to criminally investigate or prosecute any alcohol or drug abuse patient.[facility] SystemIn the event this information is protected by the Federal Confidentiality of Alcohol and Drug Abuse Patient Records regulations: The Federal rules restrict any use of the information to criminally investigate or prosecute any alcohol or drug abuse patient.[facility] SystemIn the event this information is protected by the Federal Confidentiality of Alcohol and Drug Abuse Patient Records regulations: The Federal rules restrict any use of the information to criminally investigate or prosecute any alcohol or drug abuse patient.[facility] SystemIn the event this information is protected by the Federal Confidentiality of Alcohol and Drug Abuse Patient Records regulations: The Federal rules restrict any use of the information to criminally investigate or prosecute any alcohol or drug abuse patient.[facility] SystemIn the event this information is protected by the Federal Confidentiality of Alcohol and Drug Abuse Patient Records regulations: The Federal rules restrict any use of the information to criminally investigate or prosecute any alcohol or drug abuse patient.[facility] SystemIn the event this information is protected by the Federal Confidentiality of Alcohol and Drug Abuse Patient Records regulations: The Federal rules restrict any use of the information to criminally investigate or prosecute any alcohol or drug abuse patient.[facility] SystemIn the event this information is protected by the Federal Confidentiality of Alcohol and Drug Abuse Patient Records regulations: The Federal rules restrict any use of the information to criminally investigate or prosecute any alcohol or drug abuse patient.[facility] SystemIn the event this information is protected by the Federal Confidentiality of Alcohol and Drug Abuse Patient Records regulations: The Federal rules restrict any use of the information to criminally investigate or prosecute any alcohol or drug abuse patient.[facility] SystemIn the event this information is protected by the Federal Confidentiality of Alcohol and Drug Abuse Patient Records regulations: The Federal rules restrict any use of the information to criminally investigate or prosecute any alcohol or drug abuse patient.[facility] SystemIn the event this information is protected by the Federal Confidentiality of Alcohol and Drug Abuse Patient Records regulations: The Federal rules restrict any use of the information to criminally investigate or prosecute any alcohol or drug abuse patient.[facility] SystemIn the event this information is protected by the Federal Confidentiality of Alcohol and Drug Abuse Patient Records regulations: The Federal rules restrict any use of the information to criminally investigate or prosecute any alcohol or drug abuse patient.[facility] SystemIn the event this information is protected by the Federal Confidentiality of Alcohol and Drug Abuse Patient Records regulations: The Federal rules restrict any use of the information to criminally investigate or prosecute any alcohol or drug abuse patient.[facility] SystemIn the event this information is protected by the Federal Confidentiality of Alcohol and Drug Abuse Patient Records regulations: The Federal rules restrict any use of the information to criminally investigate or prosecute any alcohol or drug abuse patient.[facility] SystemIn the event this information is protected by the Federal Confidentiality of Alcohol and Drug Abuse Patient Records regulations: The Federal rules restrict any use of the information to criminally investigate or prosecute any alcohol or drug abuse patient.[facility] Reason for Visit (unrecogniz ed section and content) Reason Comments New Pain Specialty Diagnoses / Procedures Referred By Contac t Referred To Contact Orthopedics Diagnoses Chronic pain of left knee Procedures CONSULT TO ORTHOPAEDICS OFFICE/OUTPATIENT NEW HIGH MDM 60-74 MINUTES 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, 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, [employer]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 [address] [place] [address] Referral ID Status Reason Start Date Expiration Date Visits Requested Visits Authorized [id number] Pending Review PCP Requested Referral 12/31/2021 12/31/2022 1 1 Reason Comments Patient Question Reason Comments Flank Pain Reason Comments Appointment Reason Comments Results Reason Comments Radiology US Specialty Diagnoses / Procedures Referred By Contac t Referred To Contact US IMAGING Diagnoses Right flank pain Procedures US KIDNEY/BLADDER US RETROPERITONEAL REAL TIME W/IMAGE COMPLETE No Farnsworth PA-C [address] [place] [address] Us Imaging Referral ID Status Reason Start Date Expiration Date V isits Requested Visits Authorized [id number] Closed Auto-Generate d Referral 04/01/2022 05/01/2023 1 1 Reason Comments Patient Update Reason Comments Low Back Pain nausea x this am Reason Comments Release Of Medical Records Reason Comments Fax md list, last OV note, and Demograph ics sheet. Reason Comments Follow Up Reason Comments Consult Hydronephrosis Kidney Stones Specialty Diagnoses / Procedures Referred By Contac t Referred To Contact Urology Diagnoses Other hydronephrosis Nephrolithiasis Procedures CONSULT TO UROLOGY OFFICE/OUTPATIENT NEW [facility] 60-74 MINUTES No Farnsworth PA-C [address] [place] [address] Referral ID Status Reason Start Date Expiration Date Visits Requested Visits Authorized [id number] Pending Review PCP Requested Referral 04/01/2023 1 1 Reason Comments Results Reason Comments Results Appointment Reason Comments Referral Request Reason Comments Referral Information Reason Comments Pre-Op Exam Reason Comments Faxed last OV note with pre-op clearance Care Teams (unrecognized sec tion and content) Assistant Refinery Operator Relationship Specialty Start Date End Date Caity Gandhi MD [address] [place] [address] PCP - General Internal Medicine 12/02/13 Assistant Refinery Operator Relationship Specialty Start Date End Date Caity Gandhi MD [address] [facility] [place] [address] PCP - General Internal Medicine 12/02/13 Assistant Refinery Operator Relationship Specialty Start Date End Date Caity Gandhi MD [address] [facility] [address] PCP - General Internal Medicine 12/02/13 Assistant Refinery Operator Relationship Specialty Start Date End Date Caity Gandhi MD [address] [facility] [place] [address] PCP - General Internal Medicine 12/02/13 Assistant Refinery Operator Relationship Specialty Start Date End Date Caity Gandhi MD [address] [facility] [address] PCP - General Internal Medicine 12/02/13 Assistant Refinery Operator Relationship Specialty Start Date End Date Caity Gandhi MD [address] [facility] [place] [address] PCP - General Internal Medicine 12/02/13 Assistant Refinery Operator Relationship Specialty Start Date End Date Caity Gandhi MD [address] [place] [address] PCP - General Internal Medicine 12/02/13 Assistant Refinery Operator Relationship Specialty Start Date End Date Caity Gandhi MD [address] [facility] [address] PCP - General Internal Medicine 12/02/13 Assistant Refinery Operator Relationship Specialty Start Date End Date Caity Gandhi MD [address] [facility] [place] [address] PCP - General Internal Medicine 12/02/13 Assistant Refinery Operator Relationship Specialty Start Date End Date Caity Gandhi MD [address] [facility] [place] [address] PCP - General Internal Medicine 12/02/13 Assistant Refinery Operator Relationship Specialty Start Date End Date Caity Gandhi MD [address] [facility] [place] [address] PCP - General Internal Medicine 12/02/13 Assistant Refinery Operator Relationship Specialty Start Date End Date Caity Gandhi MD [address] [place] [address] PCP - General Internal Medicine 12/02/13 Assistant Refinery Operator Relationship Specialty Start Date End Date Caity Gandhi MD [address] [place] [address] PCP - General Internal Medicine 12/02/13 Assistant Refinery Operator Relationship Specialty Start Date End Date Caity Gandhi MD [address] [place] [address] PCP - General Internal Medicine 12/02/13 Assistant Refinery Operator Relationship Specialty Start Date End Date Caity Gandhi MD [address] [place] [address] PCP - General Internal Medicine 12/02/13 Assistant Refinery Operator Relationship Specialty Start Date End Date Caity Gandhi MD [address] [place] [address] PCP - General Internal Medicine 12/02/13 Assistant Refinery Operator Relationship Specialty Start Date End Date Caity Gandhi MD [address] [place] [address] PCP - General Internal Medicine 12/02/13 Assistant Refinery Operator Relationship Specialty Start Date End Date Caity Gandhi MD [address] [place] [address] PCP - General Internal Medicine 12/02/13 INFORMATION SOURCE (unrecogn ized section and content) DATE CREATED AUTHOR AUTHOR'S RAVIWOJCIECH ATAMY 11/26/2022 [facility] ([place]) DATE CREATED AUTHOR AUTHOR'S ORGANIZ ATION 01/30/2023 [facility] FOR RECORDS PERTAINING TO PATIENTS WHO ARE OR HAVE BEEN ENROLLED IN A CHEMICAL DEPENDENCY/SUBSTANCEABUSE PROGRAM, SOME INFORMATION MAY BE OMITTED. This clinical summary was aggregated from multiple sources. Caution should be exercised in using it in the provision of clinical care. This summary normalizes information from multiple sources, and as a consequence, information in this document may materially change the coding, format and clinical context of patient data. In addition, data may be omitted in some cases. CLINICAL DECISIONS SHOULD BE BASED ON THE PRIMARY CLINICAL RECORDS. [employer] provides no warranty or guarantee of the accuracy or completeness of information in this document.
[2023-02-04] VITALS (7 sets, daily range): BP systolic 97–137; BP diastolic 42–65; PULSE 63–107; RESP 16–18; TEMP 35.9–36.7; O2SAT 94–98
[2023-02-04] MEDS: oxyCODONE 5 MG Tablet PO ×2 (01:49→11:40)
[2023-02-04] MEDS: Lactated Ringers 1,000 ML 125 ML IV (04:28)
[2023-02-04] MEDS: Acetaminophen 500 MG Tablet 1000 MG PO ×3 (05:34→22:38)
--- NOTE | 2023-02-04 07:26 | NURSING ---
Dr. Traci Woods called, updated that pt has been up to [facility] several times during the night without dizzyness and lightheaded. Dr. Will Woods gave this RN a verbal order to Discharge pt once physical therapy sees her and passes her.
[2023-02-04] MEDS: Aspirin 81 MG TAB.CHEW PO ×2 (09:17→17:10)
[2023-02-04] MEDS: Calcium (Elemental) 500 MG Tablet PO (09:18)
[2023-02-04] MEDS: Cholecalciferol (VIT D3) 25 MCG TABLET (1,000 UNITS) PO (09:18)
[2023-02-04] MEDS: Cyanocobalamin 500 MCG Tablet PO (09:18)
--- NOTE | 2023-02-04 11:51 | NURSING ---
Cely from Physical Therapy saw pt earlier this morning approximately 1015 and informed this RN that pt walked down to therapy from her room and started to feel dizzy but then proceded to try to go up the steps. Pt dizzyness got worse and pt started to sweat profusely. Pt thinks this is her body's reaction to having pain. Pain medication given recently.
--- NOTE | 2023-02-04 12:00 | PCM.PN.HOSP ---
Reason for Visit Reason for Visit: Diagnoses Encounter for other preprocedural examination (02/03/23) Subjective Subjective Patient notes pain currently improved however she moves she notes significant onset of discomfort to the right knee and more so with any activity attempts. She states she is never had surgeries orthopedic in nature and has only had previous C-sections. She does believe that her symptoms with lightheadedness, dizziness were pain mediated but she is amenable to having labs checked as well as orthostatics to ensure this is the case and no other etiology is responsible. Patient denies fevers, chills, nausea, emesis, abdominal pain, chest pain or dyspnea. Objective Data Objective Data Vital Signs: Vital Signs Temp Pulse Resp BP Pulse Ox O2 Del Method O2 Flow Rate 97.5 F L 68 18 117/42 L 98 Room Air 4 02/04/23 09:05 02/04/23 09:05 02/04/23 09:05 02/04/23 09:05 02/04/23 09:59 02/04/23 09:05 02/03/23 16:45 Oxygen Flow Rate (L/min) 4 Oxygen Delivery Method Room Air Weight: 213 lb 6.519 oz Body Mass Index (BMI) 34.4 Intake & Output: Intake and Output for Last 24 Hours 02/02/23 02/03/23 02/04/23 23:59 23:59 23:59 Intake Total 3782 / 3782 2804.17 / 2804.17 Output Total 400 / 400 1000 / 1000 Balance 3382 / 3382 1804.17 / 1804.17 Lab / Micro Data 02/04/23 12:16 02/04/23 12:16 Labs: Laboratory Results - last 24 hr 02/03/23 11:02: POC Glucose 90 Micro: Microbiology 01/21/23 12:37 Swab (Method) Nasal Screen MRSA/MSSA - Final Physical Exam Narrative Physical Examination: General: Awake, alert, oriented x 3 and cooperative, seated upright in MS bed, fatigued, no acute distress. Skin: Normal color, normal turgor, no icterus, no cyanosis except for recent or with right leg knee dressing in place, no drainage, cold pack overlying. HEENT: AT/NC, EOMI, PERRLA, MMM. Lungs: CTA bilaterally, moderate effort, mild decrease BL bases, no rales, ronchi or wheezing. Heart: Regular rate and rhythm; no gallop, rub audible. Abdomen: Soft, obese, NTTP, ND, hyperactive BS. Extremities: No cyanosis, no clubbing, peripheral not markedly pitting edema, status post recent or with as noted right total knee replacement with dressing in place, no drainage. Neurological: Patient awake, alert, oriented as noted, cognitive function intact; pupils equally reactive to light and accommodation, cranial nerves grossly normal, moving all 4 extremities although limited right lower extremity given recent right total knee replacement as expected, strength accordingly moderately to severely globally decreased. Psychiatric: Affect appears flat, fatigued, no acute evidence of depressive or anxiety feelings. Assessment & Plan Assessment/Plan (1) Osteoarthritis of right knee: PLAN: Plan The patient is a 67 y/o F w/ PMHx: Prediabetes, Former tobacco use, Obesity, GERD, Chronic anemia, Hx Nephrolithiasis, OA with ongoing right knee pain and debility despite outpatient conservative interventions prompting 02/03/2023 right total knee replacement per Dr. Woods. #1. Severe Osteoarthritis, right knee: Failed conservative therapies and treatments, admitted per Dr. Woods for planned 02/03/2023 right total knee replacement, post-operative pain management, bowel regimen, DVT Prophylaxis, PT/OT/CM per Orthopedic surgery discretion. #2. Postoperative episodes of lightheadedness, diaphoresis, dizziness: Potentially pain mediated as patient does admit to this however to be cautious we will obtain orthostatic vital signs and bolus as needed versus maintenance IV fluids. Encourage fall precautions. If orthostatics are negative and Hgb not marked changed and this is primarily pain mediated then would benefit from a scheduled pain regimen more rigidly. Would also then benefit from having an individual by her when she performs her therapy sessions to be cautious. #3. Chronic anemia, normocytic: 01/21/2023 preoperative CBC with hemoglobin 12.7, MCV 95.5 at that time, not on any chronic supplementation aside from daily vitamin B12 per current list, encourage continued outpatient follow-up and to be cautious given symptoms #2 we will obtain CBC to be cautious. #4. Obesity: Weight loss and lifestyle changes encouraged. #5. History nephrolithiasis: From current list has as needed Flomax, no reason to utilize at this time, encourage continued outpatient follow-up with her urologist as needed. #6. Prediabetes: Patient not on any regimen, given his history we will transition to ADA diet and to improve healing until A1c clarified we will maintain on accu checks w/ ISS. #7. Former tobacco usage: Encourage continued tobacco cessation. #8. DVT prophylaxis: SCDs, chemoprophylaxis per surgery discretion given recent OR. Charges/Coding Visit Charges Inpatient E&M: 21166 Subs Hosp L3
[2023-02-04 12:30] LABS: Absolute Lymphocyte Count 1.32 X10^3/uL (0.83-4.51); Absolute Neutrophil Count 11.8 X10^3/uL (2.0-7.7); Basophil# 0.01 X10^3/uL; Basophil% 0.1 % (0-1); Eosinophil# 0.01 X10^3/uL; Eosinophils% 0.1 % (0-5); Hematocrit 35.9 % (37-47); Hemoglobin 11.6 g/dL (12.0-15.0); Lymphocyte # 1.32 X10^3/ul (0.83-4.51); Lymphocyte % 9.2 % (19-41); Mean Corp Hgb Conc 32.3 g/dL (32-36); Mean Corpuscular Hgb 31.2 pg (27.0-32.0); Mean Corpuscular Volume 96.5 fL (81-99); Mean Platelet Vol. 9.4 fl (6.2-12.0); Monocyte# 1.04 X10^3/uL; Monocyte% 7.3 % (0-10); NRBC Flagged by Analyzer 0 % (0-5); Neutrophil % 82.5 % (47-70); Platelet Count 268 K/mm3 (150-450); RBC Distribution Width CV 12.2 % (11.6-14.6); RBC Distribution Width SD 43.4 fl (35.1-43.9); Red Blood Count 3.72 M/mm3 (4.2-5.4); White Blood Count 14.3 K/mm3 (4.4-11.0)
[2023-02-04 12:44] LABS: Anion Gap 4 (5-15); BUN 13 mg/dL (7-18); BUN/Creat Ratio 14.7 RATIO (10-20); Calcium,Total 8.9 mg/dL (8.5-10.1); Chloride 108 mmol/L (98-107); Creatinine, Serum 0.88 mg/dL (0.55-1.02); EST Glomerular Filtration Rate 68 mL/min (>60); Est Glom Filt Rate - Afr Amer 82 mL/min (>60); Estimated Creatinine Clearance 58.87 ml/min; Glucose 174 mg/dL (74-106); Potassium 3.9 mmol/L (3.5-5.1); Sodium Level 140 mmol/L (136-145)
[2023-02-04 14:32] LABS: Hemoglobin A1c 5.6 % (3.8-5.6)
--- NOTE | 2023-02-04 14:34 | CASEMGMT ---
RN?CM?AEROTRIANGULATION SPECIALIST?CM?to room to meet with patient for initial transition planning/care coordination?assessment.?RN?CM?introduced self and role at [facility].? Pt voices understanding and consents to?assessment?at this time.? Pt resting in bed in no distress at this time.? @ bedside. Pt is A/O at this time and answers all questions appropriately.?? Care providers, pharmacy, and demographics verified/updated at this time. PCP: Dr Sullivan Specialists: Dr Carlos Woods-dominic, Dr Swanson Preferred Pharmacy: [facility], [place] Insurance: [employer] [facility] Prescription Benefit:?Yes Living Will/HPOA:?Pt does not currently have LW/HCPOA and declines info at this time.? Pt made aware that she can contact as an out-pt and make appt in the future if she decides she would like to talk with someone about this or would like to utilize [facility] social work for advanced directive completion. LNOK: , Matthew. 4 adult children:Espinoza, Dave, Stephanie, and Ketty Living Arrangements: Lives w/her in 2-story home w/4-5 steps to enter. Bedroom and bathroom on 2nd floor and pt plans to use the 2nd floor when she returns home. Pt was indep @ baseline w/no use of AD prior to surgery. able to assist when pt returns home. Transportation:?Pt and both drive. DME: ?States has the following DME:?[facility], walker, pulse ox, BP cuff. Pt states she has access to a very large shower chair but would like to get one that is standard size. Made aware her insurance does not cover this item and discussed different places this could be purchased. Pt and state no need for further DME at this time.? HHC/SNF: No hx of either. Pt was set up to begin OP therapy @ [facility] tomorrow, but states she would like to do HHC instead. [facility] and [facility] and decline wanting list of other HHC options. Call to Gl[facility] @ [facility] and referral made. Awaiting response. states he will take care of contacting [facility] to cancel OP appts. Pt wishes to return home and states has no further concerns with going home at time of discharge.? CM?to follow for any further discharge planning/needs.? Pt and voice no further concerns/needs at this time.? PLAN:??Home w/HHC. Rebecca BSN?RN?CM
[2023-02-04 16:40] LABS: Bedside Glucose 141 mg/dL (74-106)
[2023-02-04] MEDS: Tamsulosin HCl 0.4 MG Capsule 0.400000000000000022 MG PO (17:10)
--- NOTE | 2023-02-04 18:34 | PCM.PN.ORT ---
Subjective Subjective Patient is postoperative day #1 from right total knee replacement. She denies chest pain or shortness of breath. Pain currently 0 out of 10. Pain 7 or 8 out of 10 when moving her knee. She feels her daily symptoms of lightheadedness related to knee pain. She has had similar symptoms from pain after shoulder injury and other procedures. She is hoping for discharged home tomorrow. She is concerned about the stairs in her home. She did not feel comfortable going home today because of pain, lightheadedness with pain, number of stairs in her home. Objective Data Objective Data Vital Signs: Vital Signs Temp Pulse Resp BP Pulse Ox O2 Del Method O2 Flow Rate 98.1 F 63 16 97/50 L 98 Room Air 4 02/04/23 14:46 02/04/23 14:46 02/04/23 14:46 02/04/23 14:46 02/04/23 14:46 02/04/23 14:46 02/03/23 16:45 Oxygen Flow Rate (L/min) 4 Oxygen Delivery Method Room Air Weight: 96.8 kg Body Mass Index (BMI) 34.4 Intake & Output: Intake and Output for Last 24 Hours 02/02/23 02/03/23 02/04/23 23:59 23:59 23:59 Intake Total 3782 / 3782 3164.17 / 3164.17 Output Total 400 / 400 1200 / 1200 Balance 3382 / 3382 1964.17 / 1964.17 Lab / Micro Data 02/04/23 12:16 02/04/23 12:16 Labs: Laboratory Results - last 24 hr 02/04/23 12:16: WBC 14.3 H, RBC 3.72 L, Hgb 11.6 L, Hct 35.9 L, MCV 96.5, MCH 31.2, MCHC 32.3, RDW Std Deviation 43.4, RDW Coeff of Darrel 12.2, Plt Count 268, MPV 9.4, Immature Gran % (Auto) 0.800, Neut % (Auto) 82.5 H, Lymph % (Auto) 9.2 L, [place] % (Auto) 7.3, Eos % (Auto) 0.1, Baso % (Auto) 0.1, Absolute Neuts (auto) 11.8 H, Absolute Lymphs (auto) 1.32, Nucleated RBC % 0, Sodium 140, Potassium 3.9, Chloride 108 H, Carbon Dioxide 28.0, Anion Gap 4 L, BUN 13, Creatinine 0.88, Estim Creat Clear Calc 58.87, Est GFR (MDRD) Af Amer 82, Est GFR (MDRD) Non-Af 68, BUN/Creatinine Ratio 14.7, Glucose 174 H, Hemoglobin A1c 5.6, Calcium 8.9 02/04/23 16:14: POC Glucose 141 H Micro: Microbiology 01/21/23 12:37 Swab (Method) Nasal Screen MRSA/MSSA - Final Radiography Diagnostic Testing: X-rays AP and lateral of the right knee shows a press-fit femoral and tibial component in good position. Patella was not resurfaced. Patella is in good alignment. Physical Exam Narrative Right knee bandages on clean and dry. Right knee motion is 0-75 degrees. No calf pain or swelling. Negative Homans' sign. MERT hose and SCDs are on. Good plantarflexion dorsiflexion toes and ankles. She is able to do a straight leg raise bilaterally. Legs are neurovascular intact. Assessment & Plan Assessment/Plan (1) Osteoarthritis of right knee: PLAN: Plan Her diagnosis and treatment options regarding her right knee replacement discussed with her at length. She understands to use incentive spirometer, upright position. She understands ankle exercises. She understands she should be doing knee motion exercises 5 minutes/h while awake. We will continue on her current pain medication regimen. She does feel she will be able to go home tomorrow. She does have outpatient therapy scheduled. Note from hospitalist reviewed. Patient does have prediabetes. No obvious pathology for lightheadedness other than potentially pain. Hopeful discharge to home tomorrow after passing physical therapy
--- NOTE | 2023-02-04 18:56 | NURSING ---
This RN called to the room by He ARAUJO. SECURITIES LENDING TRADER stated that pt did not look good. Pt was flushed and her neck and cheeks were bright red. No changes in assessment. PT states she was just doing leg exercises and felt warm. Pt states this happens in the past. BP 114/55, HR 66. Will continue to monitor.
[2023-02-04 23:04] LABS: Bedside Glucose 135 mg/dL (74-106)
[2023-02-05] MEDS: Acetaminophen 500 MG Tablet 1000 MG PO (05:30)
[2023-02-05 05:36] VITALS: BP 117/60; PULSE 76; RESP 16; TEMP 36.6; O2SAT 97
--- NOTE | 2023-02-05 06:20 | PN.HOSP_ITS ---
Reason for Visit Reason for Visit: Diagnoses Unilateral primary osteoarthritis, right knee (02/03/23) Encounter for other preprocedural examination (02/03/23) Subjective Subjective Patient unfortunately this morning did not eat any food and took oral narcotics in approximately 30-45 minutes following became flushed, nauseous and diaphoretic. Patient has never had any marked narcotic therapies in the past as she has not had any marked surgical history and discussed the fact that likely her reaction is secondary to the narcotic at this time. Patient was hydrated overnight and repeat orthostatics this morning are unremarkable. Discussed tr ansition of patient to different medication and patient's narcotic was de- escalated to [place] with plans trial. Patient also with significant pain to the knee and debility therefore discussed that if necessary we could consider transitional care or rehab if she was an appropriate candidate. Discussed with patient's primary physician orthopedic surgery and they will reassess following transition to [place] and physical therapy later in the afternoon. Patient denies fevers, chills, nausea, emesis, abdominal pain, chest pain or dyspnea. Objective Data Objective Data Vital Signs: Vital Signs Temp Pulse Resp BP Pulse Ox O2 Del Method O2 Flow Rate 97.9 F 76 16 117/60 97 Room Air 4 02/05/23 05:36 02/05/23 05:36 02/05/23 05:36 02/05/23 05:36 02/05/23 05:36 02/05/23 05:36 02/03/23 16:45 Oxygen Flow Rate (L/min) 4 Oxygen Delivery Method Room Air Weight: 213 lb 6.519 oz Body Mass Index (BMI) 34.4 Intake & Output: Intake and Output for Last 24 Hours 02/03/23 02/04/23 02/05/23 23:59 23:59 23:59 Intake Total 3782 / 3782 3404.17 / 3404.17 Output Total 400 / 400 1400 / 1400 Balance 3382 / 3382 17 / 2003.17 Lab / Micro Data 02/04/23 12:16 02/04/23 12:16 Labs: Laboratory Results - last 24 hr 02/04/23 12:16: WBC 14.3 H, RBC 3.72 L, Hgb 11.6 L, Hct 35.9 L, MCV 96.5, MCH 31.2, MCHC 32.3, RDW Std Deviation 43.4, RDW Coeff of Darrel 12.2, Plt Count 268, MPV 9.4, Immature Gran % (Auto) 0.800, Neut % (Auto) 82.5 H, Lymph % (Auto) 9.2 L, [place] % (Auto) 7.3, Eos % (Auto) 0.1, Baso % (Auto) 0.1, Absolute Neuts (auto) 11.8 H, Absolute Lymphs (auto) 1.32, Nucleated RBC % 0, Sodium 140, Potassium 3.9, Chloride 108 H, Carbon Dioxide 28.0, Anion Gap 4 L, BUN 13, Creatinine 0.88, Estim Creat Clear Calc 58.87, Est GFR (MDRD) Af Amer 82, Est GFR (MDRD) Non-Af 68, BUN/Creatinine Ratio 14.7, Glucose 174 H, Hemoglobin A1c 5.6, Calcium 8.9 02/04/23 16:14: POC Glucose 141 H 02/04/23 22:41: POC Glucose 135 H Micro: Microbiology 01/21/23 12:37 Swab (Method) Nasal Screen MRSA/MSSA - Final Physical Exam Narrative Physical Examination: General: Awake, alert, oriented x 3 and cooperative, seated upright in MS bedside chair, flushed, mildly diaphoretic with recent narcotic therapy in the hot last half hour and unfortunately on an empty stomach. Skin: Flushed color, normal turgor, no icterus, no cyanosis except for recent or with right leg knee dressing in place, no drainage, cold pack overlying. HEENT: AT/NC, EOMI, PERRLA, MMM, mildly diaphoretic. Lungs: CTA bilaterally, moderate effort, mild decrease BL bases, no rales, r onchi or wheezing. Heart: Regular rate and rhythm; no gallop, rub audible. Abdomen: Soft, obese, NTTP, ND, hyperactive BS. Extremities: No cyanosis, no clubbing, peripheral not markedly pitting edema, status post recent or with as noted right total knee replacement with dressing in place, no drainage. Neurological: Patient awake, alert, oriented as noted, cognitive function intact; pupils equally reactive to light and accommodation, cranial nerves grossly normal, moving all 4 extremities although limited right lower extremity given recent right total knee replacement as expected, especially given her acute presentation and recent OR strength accordingly moderately to severely globally decreased. Psychiatric: Affect appears mildly nauseated, fatigued, flushed as noted, no acute evidence of depressive or anxiety feelings. Assessment & Plan Assessment/Plan (1) Osteoarthritis of right knee: PLAN: Plan The patient is a 67 y/o F w/ PMHx: Prediabetes, Former tobacco use, Obesity, GERD, Chronic anemia, Hx Nephrolithiasis, OA with ongoing right knee pain and debility despite outpatient conservative interventions prompting 02/03/2023 right total knee replacement per Dr. Woods. #1. Severe Osteoarthritis, right knee: Failed conservative therapies and treatments, admitted per Dr. Woods for planned 02/03/2023 right total knee replacement, post-operative pain management, bowel regimen, DVT Prophylaxis, PT/OT/CM per Orthopedic surgery discretion; however, did discuss her presentation this a.m. and given concern that narcotics were likely making her feel poorly will de-escalate to [place] and orthopedic surgery noted intention for reevaluation with therapies on this new medication later in the day. If patient does not successfully perform these activities and is a concern for home d ischarge she was amenable to consideration of transitional care or rehab if an appropriate candidate. #2. Postoperative episodes of lightheadedness, diaphoresis, dizziness: Likely pain and orthostasis mediated. Orthostatics were + 02/04/2023 and IV fluids were administered with repeat 02/06/2020 3 AM orthostatics improved and normalized. Patient also likely has a low pain threshold and also as noted above do not deal with oxycodone narcotics well therefore these have not changed but would susan mmend continued close monitoring. #3. Chronic anemia, normocytic: 01/21/2023 preoperative CBC with hemoglobin 12.7, MCV 95.5 at that time, not on any chronic supplementation aside from daily vitamin B12 per current list, encourage continued outpatient follow-up and to be cautious given symptoms #2 obtained 02/04/2023 CBC with hemoglobin noted to be 11.6 at that time, may repeat per orthopedic surgery discretion. #4. Obesity: Weight loss and lifestyle changes encouraged. #5. History nephrolithiasis: From current list has as needed Flomax, no reason to utilize at this time, encourage continued outpatient follow-up with her urologist as needed. #6. Prediabetes: Patient not on any regimen, ADA diet, hemoglobin A1c 5.6%, maintain on accu checks w/ ISS. #7. Former tobacco usage: Encourage continued tobacco cessation. #8. DVT prophylaxis: SCDs, chemoprophylaxis per surgery discretion given recent OR. Charges/Coding Visit Charges Inpatient E&M: 03346 Subs Hosp L2
[2023-02-05 06:38] LABS: Bedside Glucose 112 mg/dL (74-106)
[2023-02-05] MEDS: 0.9% Normal Saline 1,000 ML 999 ML IV (06:45)
[2023-02-05] MEDS: 0.9% Saline Lock 10 ML Syringe IV ×2 (06:45→10:00)
--- NOTE | 2023-02-05 07:32 | PCM.PN.ORT ---
Subjective Subjective 67-year-old female now 2 days following a right total knee arthroplasty she was scheduled to have this done as an outpatient procedure but secondary to immobility episodes of lightheaded dizziness and diaphoresis she was admitted to the medical surgical unit. She was evaluated by hospitalist yesterday. She is feeling slightly better. She did just get lightheaded while walking for the bathroom but no syncopal events. She feels that it is likely pain related. Pain seems to be reasonably controlled in the right knee at this point no chest pain or shortness of breath. She denies a history of DVT or pulmonary embolism. Her goal is for discharge to home today after performing stairs with physical therapy as she does have to ascend multiple stairs to get into her home. Objective Data Objective Data Patient is alert and oriented x3 no acute distress at rest breathing easily without respiratory distress inspection of right knee is with dry waterproof dressing intact without active drainage erythema warmth or signs of infection. Negative Beba bilaterally without signs of DVT. Patient is able to actively plantar and dorsiflex bilateral ankles against resistance pedal pulses present and equal bilaterally neurovascularly intact Vital Signs: Vital Signs Temp Pulse Resp BP Pulse Ox O2 Del Method O2 Flow Rate 97.9 F 76 16 117/60 97 Room Air 4 02/05/23 05:36 02/05/23 05:36 02/05/23 05:36 02/05/23 05:36 02/05/23 05:36 02/05/23 05:36 02/03/23 16:45 Oxygen Flow Rate (L/min) 4 Oxygen Delivery Method Room Air Weight: 96.8 kg Body Mass Index (BMI) 34.4 Intake & Output: Intake and Output for Last 24 Hours 02/03/23 02/04/23 02/05/23 23:59 23:59 23:59 Intake Total 3782 / 3782 3404.17 / 3404.17 Output Total 400 / 400 1400 / 1400 Balance 3382 / 3382 / 2003.17 Lab / Micro Data Lab results narrative: Lab results from yesterday CBC and BMP reviewed. No lab results currently posted for today 02/04/23 12:16 02/04/23 12:16 Labs: Laboratory Results - last 24 hr 02/04/23 12:16: WBC 14.3 H, RBC 3.72 L, Hgb 11.6 L, Hct 35.9 L, MCV 96.5, MCH 31.2, MCHC 32.3, RDW Std Deviation 43.4, RDW Coeff of Darrel 12.2, Plt Count 268, MPV 9.4, Immature Gran % (Auto) 0.800, Neut % (Auto) 82.5 H, Lymph % (Auto) 9.[address] L, [facility] % (Auto) 7.3, Eos % (Auto) 0.1, Baso % (Auto) 0.1, Absolute Neuts (auto) 11.8 H, Absolute Lymphs (auto) 1.32, Nucleated RBC % 0, Sodium 140, Potassium 3.9, Chloride 108 H, Carbon Dioxide 28.0, Anion Gap 4 L, BUN 13, Creatinine 0.88, Estim Creat Clear Calc 58.87, Est GFR (MDRD) Af Amer 82, Est GFR (MDRD) Non-Af 68, BUN/Creatinine Ratio 14.7, Glucose 174 H, Hemoglobin A1c 5.6, Calcium 8.9 02/04/23 16:14: POC Glucose 141 H 02/04/23 22:41: POC Glucose 135 H 02/05/23 05:32: POC Glucose 112 H Micro: Microbiology 01/21/23 12:37 Swab (Method) Nasal Screen MRSA/MSSA - Final Assessment & Plan Assessment/Plan (1) Osteoarthritis of right knee: PLAN: - Status post right total knee arthroplasty postoperative day #2 -Continue oxycodone as prescribed as needed for pain control. Patient already has this prescription at home. She will also continue with scheduled Tylenol 3 times daily -DVT prophylaxis bilateral teds SCDs and aspirin 81 mg twice daily for 1 month postoperative. Patient denies a history of DVT or pulmonary embolism -Leukocytosis afebrile without acute signs of infection likely resulting from acute stress response, atelectasis, versus Decadron anticipate resolution over the next several days -Drop in hemoglobin hematocrit without indication for transfusion likely multifactorial due to chronic anemia hemodilution and blood loss -Encourage incentive spirometry -Continue discharge planning with case management plan will be for discharge to home today with outpatient physical therapy -Continue postoperative medical management per hospitalist -Patient is orthopedically stable and okay for discharge to home if cleared medically having adequate pain control and doing well with physical therapy we will plan to follow-up with her in the office in 2 weeks for reassessment
--- NOTE | 2023-02-05 07:46 | DCINST_ITS ---
Discharge Instructions Diet Discharge Diet: 1800 Calorie Control Diet Activity Discharge Activity: May Not Drive (while taking narcotic pain medications.) and Use Walker May shower in (days): 2 (only if incision is dry and without drainage. Do NOT soak/submerge in tub/pool/rowell/stream/hot tub.) Ice area for (Minutes): 20 (Every hour as needed for pain and swelling) Weight Bearing Status: Weight bearing as tolerated Keep extremity elevated above heart level: Operative Extremity Additional Activity Instructions:: Wear elastic stockings for 2 weeks after your surgery. Dressing / Incision Call your doctor if your incision/area has: Continuous Slow Oozing, Sudden Increased Bleeding, Increased Pain/ Swelling, Increased Redness and Foul Smelling Discharge Call your doctor if you observe: Fever of 101 or Higher, Shortness of breath, Chest pain and Calf discomfort Remove Dressing in: 5 days Cleanse incision/area with: Soap & Water Additional Dressing/Incision Instructions:: See postoperative orthopedic pink sheet Follow Up Care Please Follow Up With: Dang Brewster, PA When: November 01, 2020 2:15 PM [facility] ([place] [facility]) Test Results: Test results from this visit will be discussed in further detail at your follow- up appointment, if applicable. Discharge Plan Admission Admit Date/Time: 02/03/23 19:00 Attending Provider: Carlos Woods Primary Care Provider: Caity Sullivan Discharge Orders/Prescriptions Prescriptions: New oxycodone 5 mg Tablet 5 - 10 mg PO Q6H PRN PRN (Reason: Pain Score 4-10) Qty: 0 0RF aspirin 81 mg Tablet,Chewable 81 mg PO BIDCM Qty: 0 0RF acetaminophen 500 mg Tablet 1,000 mg PO Q8 Qty: 0 0RF Continued cyanocobalamin (vitamin B-12) [Vitamin B-12] 500 mcg tablet 500 mcg PO DAILY calcium 600 mg capsule 600 mg PO DAILY cholecalciferol (vitamin D3) [Vitamin D3] 25 mcg (1,000 unit) tablet 25 mcg PO DAILY tamsulosin 0.4 mg capsule 0.4 mg PO PRN (Reason: KIDNEY STONES) Patient Comments: Take 1 capsule by mouth daily at bedtime. No Action glucosamine-chondroitin 250-200 mg tablet 2 tab PO TID Rx Instructions: give after food/meal Other Ambulatory Orders: 12 Lead EKG (Routine) Timeframe: 20230121 Location: None Selected Ordered By: Dr. Carlos Woods Referrals / Follow Up: Caity Sullivan MD [Primary Care Provider] - Disposition Disposition (needs filled in before D/C Order can be placed): Home Health Service
[2023-02-05 08:03] VITALS: BP 112/69; BP 122/65; BP 126/51; PULSE 70; PULSE 75; PULSE 76
[2023-02-05] MEDS: oxyCODONE 5 MG Tablet PO (08:13)
[2023-02-05] MEDS: Cyanocobalamin 500 MCG Tablet PO (08:16)
[2023-02-05] MEDS: Aspirin 81 MG TAB.CHEW PO ×2 (08:16→17:12)
[2023-02-05] MEDS: Cholecalciferol (VIT D3) 25 MCG TABLET (1,000 UNITS) PO (08:16)
[2023-02-05] MEDS: Calcium (Elemental) 500 MG Tablet PO (08:16)
--- NOTE | 2023-02-05 08:46 | CASEMGMT ---
Met with patient to complete CHACON form. CHACON form explained to patient who voiced understanding and signed form. Original form placed in pt?s chart and copy provided to patient. Joaquina Li, Discharge Planning Asst.?
[2023-02-05 08:48] VITALS: BP 112/69; PULSE 68; RESP 18; TEMP 36.6; O2SAT 98
--- NOTE | 2023-02-05 09:57 | CASEMGMT ---
Discharge Planning A list of SNF providers including quality and resource use data and consistent with the patient?s preferred geographic region, medical needs, and insurance network was created in [facility] Guide. This list was provided to the SW. Joaquina Li Discharge Planning Asst.
[2023-02-05] MEDS: Ondansetron 4 MG/2 ML Vial IV (10:00)
[2023-02-05 11:42] LABS: Bedside Glucose 120 mg/dL (74-106)
--- NOTE | 2023-02-05 12:44 | CASEMGMT ---
Addendum entered by Berlin Alston 02/05/23 17:18: Glo @ [facility] made aware plan is for SNF now and HHC referral cancelled. Original Note: BRENT GARCIA NOTE: Per Wendy @ [facility], they are able to accept pt and pre-cert has been started. Rebecca BARRAZA RN CM
[2023-02-05] MEDS: HYDROcodone Bitartrate/Apap 5/325 Tablet PO ×2 (14:01→20:48)
[2023-02-05 15:00] VITALS: BP 137/69; PULSE 75; RESP 18; TEMP 36.8; O2SAT 97
[2023-02-05] MEDS: Tamsulosin HCl 0.4 MG Capsule 0.400000000000000022 MG PO (17:12)
[2023-02-05 17:27] LABS: Bedside Glucose 139 mg/dL (74-106)
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
[2023-02-05 20:52] VITALS: BP 145/69; PULSE 99; RESP 18; TEMP 37.1; O2SAT 97
[2023-02-05 20:59] LABS: Bedside Glucose 130 mg/dL (74-106)
[2023-02-06 05:00] VITALS: BP 148/73; PULSE 88; RESP 16; TEMP 36.3; O2SAT 97
--- NOTE | 2023-02-06 06:17 | PN.HOSP_ITS ---
Reason for Visit Reason for Visit: Diagnoses Unilateral primary osteoarthritis, right knee (02/03/23) Encounter for other preprocedural examination (02/03/23) Subjective Subjective And overnight with no acute events per self and per nursing report. She notes she did markedly better on the [place] with no GI side effects nor any diaphoresis or lightheadedness. She had no further lightheadedness and has been working with therapies but has significant difficulties with ambulation and is now decided for skilled versus rehab placement and is awaiting certification. Patient denies fevers, chills, nausea, emesis, abdominal pain, chest pain or dy spnea. Objective Data Objective Data Vital Signs: Vital Signs Temp Pulse Resp BP Pulse Ox O2 Del Method O2 Flow Rate 98.2 F 75 18 137/69 H 97 Room Air 4 02/05/23 15:00 02/05/23 15:00 02/05/23 15:00 02/05/23 15:00 02/05/23 15:00 02/05/23 15:00 02/03/23 16:45 Oxygen Flow Rate (L/min) 4 Oxygen Delivery Method Room Air Weight: 213 lb 6.519 oz Body Mass Index (BMI) 34.4 Intake & Output: Intake and Output for Last 24 Hours 02/04/23 02/05/23 02/06/23 23:59 23:59 23:59 Intake Total 3404.17 / 3404.17 1850 / 1850 Output Total 1400 / 1400 Balance 2004.17 / 2004.17 1850 / 1850 Lab / Micro Data 02/04/23 12:16 02/04/23 12:16 Labs: Laboratory Results - last 24 hr 02/05/23 05:32: POC Glucose 112 H 02/05/23 11:25: POC Glucose 120 H 02/05/23 17:08: POC Glucose 139 H 02/05/23 20:41: POC Glucose 130 H Micro: Microbiology 01/21/23 12:37 Swab (Method) Nasal Screen MRSA/MSSA - Final Radiography Diagnostic Testing: Radiology Impression Knee X-Ray 02/03/23 15:36 IMPRESSION: Satisfactory postop changes. Electronically Signed: Bladimir Carreno MD at 16:51 EDT , Physical Exam Narrative Physical Examination: General: Awake, alert, oriented x 3 and cooperative, seated upright in the physical/Occupational Therapy facility, appears much improved since prior but notes that she is still having discomfort with doing the therapies but progressing Skin: Flushed color, normal turgor, no icterus, no cyanosis except for recent or with right leg knee dressing in place, no drainage, cold pack overlying. HEENT: AT/NC, EOMI, PERRLA, MMM. Lungs: CTA bilaterally, moderate effort, mild decrease BL bases, no rales, ronchi or wheezing. Heart: Regular rate and rhythm; no gallop, rub audible. Abdomen: Soft, obese, NTTP, ND, normal BS. Extremities: No cyanosis, no clubbing, peripheral not markedly pitting edema, status post recent or with as noted right total knee replacement with dressing in place, no drainage. Neurological: Patient awake, alert, oriented as noted, cognitive function intact; pupils equally reactive to light and accommodation, cranial nerves grossly normal, moving all 4 extremities although limited right lower extremity given recent right total knee replacement as expected, suspect patient probably has a low threshold for pain as she is having significant difficulties with therapies and reporting severe pain but is progressing. Psychiatric: Affect appears more normal, talkative, interactive, no acute evidence of depressive or anxiety feelings. Assessment & Plan Assessment/Plan (1) Osteoarthritis of right knee: PLAN: Plan The patient is a 67 y/o F w/ PMHx: Prediabetes, Former tobacco use, Obesity, GERD, Chronic anemia, Hx Nephrolithiasis, OA with ongoing right knee pain and debility despite outpatient conservative interventions prompting 02/03/2023 right total knee replacement per Dr. Woods. #1. Severe Osteoarthritis, right knee: Failed conservative therapies and treatments, admitted per Dr. Woods for planned 02/03/2023 right total knee replacement, post-operative pain management, bowel regimen, DVT Prophylaxis, PT/OT/CM per Orthopedic surgery discretion; however, did discuss her presentation this a.m. and given concern that narcotics were likely making her feel poorly thus 02/05/23 de-escalated to Randolph with improved tolerance, but still patient with notable debility and has several steps at home thus Rehab/TCU transition request started. #2. Postoperative episodes of lightheadedness, diaphoresis, dizziness: Likely pain and orthostasis mediated. Orthostatics were + 02/04/2023 and IV fluids were administered with repeat 02/06/2020 3 AM orthostatics improved and normalized. Patient also likely has a low pain threshold and also as noted above do not deal with oxycodone narcotics, improved with transition to norco as noted. Pending TCU versus rehab transition as noted. #3. Chronic anemia, normocytic: 01/21/2023 preoperative CBC with hemoglobin 12.7, MCV 95.5 at that time, not on any chronic supplementation aside from daily vitamin B12 per current list, encourage continued outpatient follow-up and to be cautious given symptoms #2 obtained 02/04/2023 CBC with hemoglobin noted to be 11.6 at that time, may repeat per orthopedic surgery discretion. #4. Obesity: Weight loss and lifestyle changes encouraged. #5. History nephrolithiasis: From current list has as needed Flomax, no reason to utilize at this time, encourage continued outpatient follow-up with her urologist as needed. #6. Prediabetes: Patient not on any regimen, ADA diet, hemoglobin A1c 5.6%, maintain on accu checks w/ ISS. #7. Former tobacco usage: Encourage continued tobacco cessation. #8. DVT prophylaxis: SCDs, chemoprophylaxis per surgery discretion given recent OR. Charges/Coding Visit Charges Inpatient E&M: 51162 Subs Hosp L2
[2023-02-06] MEDS: HYDROcodone Bitartrate/Apap 5/325 Tablet PO ×2 (06:22→13:31)
[2023-02-06 08:17] VITALS: BP 136/76; PULSE 85; RESP 18; TEMP 36.9; O2SAT 94
[2023-02-06] MEDS: Aspirin 81 MG TAB.CHEW PO (08:21)
[2023-02-06] MEDS: Cholecalciferol (VIT D3) 25 MCG TABLET (1,000 UNITS) PO (08:22)
[2023-02-06] MEDS: Cyanocobalamin 500 MCG Tablet PO (08:22)
[2023-02-06] MEDS: Calcium (Elemental) 500 MG Tablet PO (08:22)
--- NOTE | 2023-02-06 12:08 | CASEMGMT ---
Addendum entered by Berlin Alston 02/06/23 12:56: Darell Cabello @ [facility], they are able to accept pt. SOC slated for tomorrow around 10-10:30 AM. Pt states this time/date will work okay. also made aware. Pt denies having other d/c planning needs or concerns. Original Note: BRENT GARCIA NOTE: Order placed for [facility]: PT/OT and SW. Call to [facility] and spoke w/Destiney re: referral. She was made aware pt to discharge home today. Awaiting response. Rebecca BARRAZA RN CM
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
--- NOTE | 2023-02-06 12:36 | PN.ORTHO_ITS ---
Subjective Subjective Patient is now 3 days postoperative following a right total knee arthroplasty. She seems to be doing much better with the [place] for pain control. She has been doing reasonably well with physical therapy she is concerned about the stairs into her home and getting upstairs where the bedroom and the bathroom are loc ated. There was a request submitted for [facility] this was denied by the insurance company she does feel able to go home. She has been working with a walker. Currently denies chest pain shortness of breath dizziness or calf pain. No adverse events overnight. Objective Data Objective Data Patient is alert and oriented x3 no acute distress at rest breathing easily without respiratory distress. Inspection of right knee is with dry waterproof dressing without active drainage erythema warmth or signs of infection. No calf pain or swelling bilaterally. Patient is able to actively plantar and dorsiflex bilateral ankles against resistance sensation intact light touch pedal pulses present equal bilaterally neurovascularly intact Vital Signs: Vital Signs Temp Pulse Resp BP Pulse Ox O2 Del Method O2 Flow Rate 98.4 F 85 18 136/76 H 94 Room Air 4 02/06/23 08:17 02/06/23 08:17 02/06/23 08:17 02/06/23 08:17 02/06/23 08:17 02/06/23 08:17 02/03/23 16:45 Oxygen Flow Rate (L/min) 4 Oxygen Delivery Method Room Air Weight: 96.8 kg Body Mass Index (BMI) 34.4 Intake & Output: Intake and Output for Last 24 Hours 02/04/23 02/05/23 02/06/23 23:59 23:59 23:59 Intake Total 3404.17 / 3404.17 1850 / 1850 Output Total 1400 / 1400 Balance 2004.17 / 2003.17 1850 / 1850 Lab / Micro Data 02/04/23 12:16 02/04/23 12:16 Labs: Laboratory Results - last 24 hr 02/05/23 17:08: POC Glucose 139 H 02/05/23 20:41: POC Glucose 130 H Micro: Microbiology 01/21/23 12:37 Swab (Method) Nasal Screen MRSA/MSSA - Final Assessment & Plan Assessment/Plan (1) Osteoarthritis of right knee: PLAN: Hospitalist note February 06, 2023 reviewed -Status post right total knee arthroplasty postoperative day #3 -Continue [place] as prescribed as needed for pain. A prescription for [place] has been faxed to drug [facility] in [place] for patient to picker tender helper today for continued pain control -DVT prophylaxis bilateral teds SCDs and aspirin 81 mg twice daily for blood clot prevention x1 month -Continue PT/OT weightbearing as tolerated right lower extremity with a walker plan for discharge with home health physical therapy -Continue discharge planning with case management -Continue postoperative medical management per hospitalist patient has been noted to be prediabetic recommended follow-up with primary care provider as an outpatient for continued management -Patient is orthopedically stable okay for discharge to home today if cleared medically having adequate pain control doing well with physical therapy we will plan to follow-up with her in the office in 2 weeks for reassessment
--- NOTE | 2023-02-06 12:40 | DS.PCM_ITS ---
Providers Date of Admission: 02/03/23 Date of Discharge: 02/06/23 Primary Care Physician: MD Dr. Maria Guadalupe Hodge Reason For Visit: RT TOTAL KNEE REPLACMENT Diagnosis Discharge Diagnosis (1) Osteoarthritis of right knee: Status: Acute Code(s): M17.11 - Unilateral primary osteoarthritis, right knee Plan: Hospitalist note February 06, 2023 reviewed -Status post right total knee arthroplasty postoperative day #3 -Continue [place] as prescribed as needed for pain. A prescription for [place] has been faxed to [facility] in [place] for patient to pickle pumper today for continued pain control -DVT prophylaxis bilateral teds SCDs and aspirin 81 mg twice daily for blood clot prevention x1 month -Continue PT/OT weightbearing as tolerated right lower extremity with a walker plan for discharge with home health physical therapy -Continue discharge planning with case management -Continue postoperative medical management per hospitalist patient has been no mil to be prediabetic recommended follow-up with primary care provider as an outpatient for continued management -Patient is orthopedically stable okay for discharge to home today if cleared medically having adequate pain control doing well with physical therapy we will plan to follow-up with her in the office in 2 weeks for reassessment Medications at Discharge Home Medications calcium 600 mg capsule 600 mg PO DAILY 01/21/23 cholecalciferol (vitamin D3) 25 mcg (1,000 unit) tablet (Vitamin D3) 25 mcg PO DAILY 01/21/23 cyanocobalamin (vitamin B-12) 500 mcg tablet (Vitamin B-12) 500 mcg PO DAILY 01/21/23 glucosamine-chondroitin 250 mg-200 mg tablet 2 tab PO TID 01/21/23 tamsulosin 0.4 mg capsule 0.4 mg PO PRN KIDNEY STONES 01/21/23 acetaminophen 500 mg tablet 1,000 mg (2 x 500 mg) PO Q8 #0 tabs 02/05/23 aspirin 81 mg chewable tablet 81 mg PO BIDCM #0 tabs 02/05/23 oxycodone 5 mg tablet 5 - 10 mg (1 - 2 x 5 mg) PO Q6H PRN PRN Pain Score 4-10 #0 tabs 02/05/23 Hospital Course Summary of Care Provided Hospital Course: This is a 67-year-old female who underwent a right total knee arthroplasty a Friday, February 03, 2023. Intraoperative was uneventful for details please refer to dictated operative report. She was scheduled to be an outpatient procedure but had poorly controlled pain so she was admitted overnight for observation and to work with physical therapy the next morning. Upon working with physical therapy she had an episode of feeling lightheaded and dizzy with diaphoresis. Hospitalist was consulted. She had an orthostatic work-up. She was also diagnosed with prediabetes. She had a concern with being able to return home and navigate her household stairs. She was anticipating being discharged to a group home facility. This was denied by the insurance company. After careful discussion the patient did feel safe to return to home with home health physical therapy. She was discharged on postoperative day #3 in stable condition to home. She will follow-up with primary care provider as an outpat ient for management of her new diagnosis of prediabetes. She will follow-up with orthopedics 2 weeks for reassessment of her right total knee replacement. Weight / BMI Weight Weight: 96.8 kg Body Mass Index (BMI) 34.4 ABG / Lab / Microbiology Data 02/04/23 12:16 02/04/23 12:16 Laboratory: Laboratory Results - last 24 hr 02/05/23 17:08: POC Glucose 139 H 02/05/23 20:41: POC Glucose 130 H Microbiology: Microbiology 01/21/23 12:37 Swab (Method) Nasal Screen MRSA/MSSA - Final D/C Instructions Discharge Diet: 1800 Calorie Control Diet May shower in (days): 2 (only if incision is dry and without drainage. Do NOT soak/submerge in tub/pool/rowell/stream/hot tub.) Ice area for (Minutes): 20 (Every hour as needed for pain and swelling) Weight Bearing Status: Weight bearing as tolerated Keep extremity elevated above heart level: Operative Extremity Additional Activity Instructions: Wear elastic stockings for 2 weeks after your surgery. Call your doctor if your incision/area has: Continuous Slow Oozing, Sudden Increased Bleeding, Increased Pain/ Swelling, Increased Redness and Foul Smelling Discharge Call your doctor if you observe: Fever of 101 or Higher, Shortness of breath, Chest pain and Calf discomfort Cleanse incision/area with: Soap & Water Additional Dressing/Incision Instructions: See postoperative orthopedic pink sheet Please Follow Up With: Dang Brewster PA When: November 01, 2020 2:15 PM [facility] ([place] [facility]) Meaningful Use Info Meaningful Use Diagnoses (Choose all that apply): None applicable and VTE VTE Anticoag overlap given w/in hospital stay or rx'd at dc?: Yes Pt receive overlap for 5 days?: Yes Discharge Plan Admission Admit Date/Time: 02/03/23 19:00 Attending Provider: Carlos Woods Primary Care Provider: Caity Sullivan Discharge Orders/Prescriptions Prescriptions: New oxycodone 5 mg Tablet 5 - 10 mg PO Q6H PRN PRN (Reason: Pain Score 4-10) Qty: 0 0RF aspirin 81 mg Tablet,Chewable 81 mg PO BIDCM Qty: 0 0RF acetaminophen 500 mg Tablet 1,000 mg PO Q8 Qty: 0 0RF Continued cyanocobalamin (vitamin B-12) [Vitamin B-12] 500 mcg tablet 500 mcg PO DAILY calcium 600 mg capsule 600 mg PO DAILY cholecalciferol (vitamin D3) [Vitamin D3] 25 mcg (1,000 unit) tablet 25 mcg PO DAILY tamsulosin 0.4 mg capsule 0.4 mg PO PRN (Reason: KIDNEY STONES) Patient Comments: Take 1 capsule by mouth daily at bedtime. No Action glucosamine-chondroitin 250-200 mg tablet 2 tab PO TID Rx Instructions: give after food/meal Other Ambulatory Orders: 12 Lead EKG (Routine) Timeframe: 20230121 Location: None Selected Ordered By: Dr. Carlos Woods Referrals / Follow Up: Caity Sullivan MD [Primary Care Provider] - Disposition Disposition (needs filled in before D/C Order can be placed): Home Health Service
[2023-02-06 13:30] VITALS: BP 132/75; PULSE 85; RESP 18; TEMP 37; O2SAT 98
== END 2023-02-06 15:30 | disposition home health service (06) ==
LOC: SDC 19:25 → MS3 19:25
PROVIDERS: Anesthesiology; Family Medicine; Admitting Provider Orthopaedic Surgery; PCP Internal Medicine; Referring Provider Orthopaedic Surgery; Visit Provider Orthopaedic Surgery
PROC: (CPT 27447; principal; 2023-02-03 12:35)
DX: M17.11 Unilateral primary osteoarthritis, right knee (principal); R42 Dizziness and giddiness; R73.03 Prediabetes; Z79.899 Other long term (current) drug therapy; Z87.891 Personal history of nicotine dependence; K21.9 Gastro-esophageal reflux disease without esophagitis; E66.9 Obesity, unspecified; Z68.34 Body mass index [BMI] 34.0-34.9, adult
CPT/HCPCS: 27447; 01402; 64447; 36415; 73560; 80048; 82962; 83036; 83735; 85025; 87077; 87081; 88305; 88311; 93005; 94668; 96361; 96374; 97110; 97116; 97162; 97166; 97530; 97535; 99221; 99252; C1776; J7030; J7120; A4216; G0378; G0463; J2405; J3475

== ENCOUNTER 2023-04-01 13:30 | Outpatient (RCR) | payer MEDICARE, SELFPAY ==
--- NOTE | 2023-04-01 14:16 | HP.PTDCSUM ---
Discharge Summary D/C summary: It has been my pleasure to treat SUSAN HOLDER referred by GABI Espinoza, with the diagnosis of R TKR s/p 02/03/23 for a total of 9 visit(s). Discharge Date: 04/01/23 Please see the following information for a summary of their discharge status. Subjective Subjective: Pt reports that bending her knee is still an issue and her thigh is always achy. Pt not back to work yet. Pt reports that she wants to be done with PT today due to high co-pay Pain R knee pain: Pain Intensity (Out of 10): 3 Overall Improvement % Improvement: 90 Objective Objective/Function: Pt still walks with more of a stiff R leg with gait with a straight cane Stairs: Up and down stairs recip with 1 hand rail and a quad cane LE MMT: R hip flex 13.4 and L 17.6 R knee ext 13.2 and L 23.7 R knee flex 8.7 and 11.6) R knee AROM: -2 109 Discussed and demonstrated how to use the machines. Goals Goal 1:: I HEP Goal Progress: Goal Met Goal 2:: Increase R LE strength (at the time of the eval R hip flex 11.8 and L 17.2 R knee ext 13.2 and L 23.7 R knee flex 8.7 and 11.6) Goal Progress: Progressing Goal 3:: Increase R knee AROM (at the time of the eval: R knee AROM -4 to 102) Goal Progress: Progressing Goal 4:: Be able to walk without AD without antalgic gait on the L Goal Progress: Progressing Goal 5:: Be able to go up and down the stairs recip with a handrail with ease Goal Progress: Progressing Plan Plan: Pt RTD Chuck tomorrow. No time to write progress note to doctor today. 2-3X/ week for 8-12 weeks for R knee AROM, stretching, strengthening, gait training, stairs, functional activities with HEP D/C Information Discharge Comments: DC PT to [facility] d/c sentence: If there are questions or concerns regarding this patient's physical therapy, please feel free to call me at [phone]. Thank you for the referral of this patient. Sincerely, Shelbie Reynolds, MPT Balance/Gait/Functional tests Balance/Special Test Scores WOMAC Total Score: 42 WOMAC Percentage: 56.2500 Improvement % Improvement: 90
== END 2023-04-01 19:00 | disposition home or self-care (01) ==
LOC: PT 13:30
PROVIDERS: PCP Internal Medicine; Referring Provider Physician Assistant; Visit Provider Physician Assistant
DX: M17.12 Unilateral primary osteoarthritis, left knee (principal); Z47.1 Aftercare following joint replacement surgery; Z96.651 Presence of right artificial knee joint
CPT/HCPCS: 97110; 97161; 97530

== ENCOUNTER 2024-12-03 13:27 | Emergency (ER) | payer MEDICARE, SELFPAY ==
[2024-12-03 13:28] VITALS: BP 133/67; PULSE 66; RESP 17; TEMP 36.5; O2SAT 100; BMI 35.1
--- NOTE | 2024-12-03 13:40 | EKG12_ITS ---
Test Reason : SOB Blood Pressure : */* mmHG Vent. Rate : 64 BPM Atrial Rate : 64 BPM P-R Int : 200 ms QRS Dur : 92 ms QT Int : 446 ms P-R-T Axes : 12 30 22 degrees QTcB Int : 460 ms Normal sinus rhythm Normal ECG Confirmed by Berto Cuevas ([id number]), rewrite editor BRANT VERGARA ([id number]) on 12/07/2024 11:39:03 AM Referred By: Thalia Mendez Confirmed By: Berto Cuevas
[2024-12-03] MEDS: Ondansetron 4 MG/2 ML Vial IV (13:47)
--- NOTE | 2024-12-03 13:54 | EDS_ITS ---
HPI <GABI Orr - Last Filed: 12/03/24 20:36> History of Present Illness Chief Complaint: Weakness Narrative Narrative: 69-year-old female was outside working in the yard from 10 AM to 1 PM pulling weeds. She went inside because she started to feel very lightheaded and nauseated and vomited twice. Her put a cool towel and ice pack on her and called EMS. Patient denies chest pain. She states she feels a little short of breath. EMS started IV fluids. She has not been eating or drinking much because she had a tooth pulled yesterday. Last night she only had water and yogurt and this morning she had toast. [facility] <GABI Orr - Last Filed: 12/03/24 20:36> [facility] Medical History (Updated 12/03/24 @ 20:35 by GABI Orr) Contact with and (suspected) exposure to other viral communicable diseases Sigmoidoscopy exam Shoulder pain Acute hemorrhoid Headache Cancer Wears glasses Loose, teeth Post-menopausal Abrasion Arthritis Anemia Migraine headache GERD (gastroesophageal reflux disease) Former smoker History of kidney stones Home Medications ?Medication ?Instructions ?Recorded ?Last Taken ?Type cholecalciferol (vitamin D3) 25 25 mcg PO DAILY Unknown History mcg (1,000 unit) tablet (Vitamin D3) cyanocobalamin (vitamin B-12) 500 500 mcg PO DAILY 02/05 Unknown History mcg tablet (Vitamin B-12) glucosamine-chondroitin 250 mg-200 2 tab PO TID Unknown History mg tablet tamsulosin 0.4 mg capsule 0.4 mg PO Q24H PRN KIDNEY ST ONES 01/21/23 Unknown History oxycodone 5 mg tablet 5 - 10 mg (1 - 2 x 5 mg) PO Q6H 02/05/23 Unknown Rx PRN PRN Pain Score 4-10 #0 tabs cephalexin 500 mg capsule 500 mg PO BID 7 days #14 cap s 12/03/24 Unknown Rx Allergy/AdvReac Type Severity Reaction Status Date / Time No Known Allergies Allergy Verified 12/03/24 13:33 Family History (Updated 01/28/23 @ 15:02 by Celeste Zimmer) Other CVA (cerebral vascular accident) Cancer Heart disease Thyroid disorder Surgical History H/O colonoscopy History of section History of foot surgery Social History Smoking Status: Former smoker ROS <GABI Orr - Last Filed: 12/03/24 20:36> ROS ED ROS Narrative Constitutional: Negative for fever, chills. CVS: Negative for palpitations, chest pain, syncope. Respiratory: Positive for shortness of breath. GI: Positive for nausea, vomiting. No abdominal pain. EXAM <GABI Orr - Last Filed: 12/03/24 20:36> Physical Exam Narrative Exam Narrative: CONST: Patient appears pale lying in bed. No distress. EYES: Normal inspection. NECK: Normal inspection. RESP: No respiratory distress, CTAB. CVS: Regular rate and rhythm, no murmur, no gallop. ABD: Soft and nontender, no guarding or rebound, nondistended. SKIN: Color normal, no rash, warm, dry, intact. EXTREMITIES: Normal appearance, no pedal edema. NEURO: Alert and answering questions appropriately. PSYCH: Normal affect. Const Vital Signs: 12/03/24 13:28 12/03/24 13:48 12/03/24 14:15 Temperature 97.7 F L Temperature Source Oral Pulse Rate 66 65 Respiratory Rate 17 19 H Respiratory Pattern Normal Blood Pressure 133/67 H 140/70 H Blood Pressure Mean 89 93 Pulse Ox 100 100 Oxygen Delivery Method Room Air 12/03/24 15:00 12/03/24 16:00 12/03/24 16:05 Temperature 97.8 F Temperature Source Pulse Rate 67 73 73 Respiratory Rate 16 12 12 Respiratory Pattern Blood Pressure 146/79 H 138/68 H Blood Pressure Mean 99 91 Pulse Ox 96 92 99 Oxygen Delivery Method <Dr. Thalia Mendez, - Last Filed: 12/05/24 07:46> Physical Exam Const Vital Signs: 12/03/24 13:28 12/03/24 13:48 12/03/24 14:15 Temperature 97.7 F L Temperature Source Oral Pulse Rate 66 65 Respiratory Rate 17 19 H Respiratory Pattern Normal Blood Pressure 133/67 H 140/70 H Blood Pressure Mean 89 93 Pulse Ox 100 100 Oxygen Delivery Method Room Air 12/03/24 15:00 12/03/24 16:00 12/03/24 16:05 Temperature 97.8 F Temperature Source Pulse Rate 67 73 73 Respiratory Rate 16 12 12 Respiratory Pattern Blood Pressure 146/79 H 138/68 H Blood Pressure Mean 99 91 Pulse Ox 96 92 99 Oxygen Delivery Method [facility] <GABI Orr - Last Filed: 12/03/24 20:36> [facility] Narrative Medical decision making narrative: History gathered from: Patient and spouse Patient was outdoors working in a 5+ degree heat for over 3 hours when she started to feel weak, lightheaded, short of breath and had nausea and vomiting. No chest pain. She appears pale but nontoxic. Vitals are stable. She has slightly dry mucous membranes with an otherwise benign exam. Differential includes but not limited to heat exhaustion, electrolyte derangement, or TERRY. CBC and BMP are normal. EKG is nonischemic and troponin is negative. After IV fluids and Zofran patient is feeling better and is able to ambulate independently. She did then mention her urine has had an odor so urinalysis was obtained. It is positive so I prescribed Keflex. Patient was advised to rest, drink fluids, and was given return precautions. She was discharged in stable condition. Lab Data Attestation: I reviewed the patient's lab results. Labs: Laboratory Results - last 24 hr 12/03/24 12/03/24 13:50 15:43 WBC 9.5 RBC 4.48 Hgb 13.6 Hct 40.4 MCV 90.2 MCH 30.4 MCHC 33.7 RDW Std Deviation 39.4 RDW Coeff of Darrel 12.0 Plt Count 349 MPV 9.9 Immature Gran % (Auto) 0.300 Neut % (Auto) 63.3 Lymph % (Auto) 28.9 Tyler % (Auto) 6.1 Eos % (Auto) 0.9 Baso % (Auto) 0.5 Absolute Neuts (auto) 6.0 Absolute Lymphs (auto) 2.75 Nucleated RBC % 0 Sodium 141 Potassium 3.7 Chloride 103 Carbon Dioxide 20.7 L Anion Gap 17 H BUN 12 Creatinine 1.17 Estim Creat Clear Calc 54.50 Est GFR (MDRD) Non-Af 51 L BUN/Creatinine Ratio 10.4 Glucose 156 H Calcium 10.0 Troponin T High Sens 10 Urine Color Yellow Urine Clarity Sl. Cloudy Urine pH 8.0 Ur Specific [place] 1.015 Urine Protein 15 H Urine Glucose (UA) Normal Urine Ketones 50 H Urine Occult Blood 10 H Urine Nitrite Positive H Urine Bilirubin Negative Urine Urobilinogen Normal Ur Leukocyte Esterase 25 H Urine RBC 0-5 SEEN Urine WBC 10-25 SEEN Ur Squamous Epith Cells 5-10 SEEN Urine Bacteria 2+ Hyaline Casts 0-5 SEEN Urine Mucus 0 SEEN EKG Initial EKG: Attestation: I personally reviewed and interpreted this EKG as follows: Interpretation: Sinus Rhythm and No Acute Injury Pattern Comments: Normal sinus rhythm at 64 bpm Normal intervals, no acute ischemic changes <Dr. Thalia Mendez, DO - Last Filed: 12/05/24 07:46> [facility] Lab Data Labs: Laboratory Results - last 24 hr 12/03/24 12/03/24 13:50 15:43 WBC 9.5 RBC 4.48 Hgb 13.6 Hct 40.4 MCV 90.2 MCH 30.4 MCHC 33.7 RDW Std Deviation 39.4 RDW Coeff of Darrel 12.0 Plt Count 349 MPV 9.9 Immature Gran % (Auto) 0.300 Neut % (Auto) 63.3 Lymph % (Auto) 28.9 Tyler % (Auto) 6.1 Eos % (Auto) 0.9 Baso % (Auto) 0.5 Absolute Neuts (auto) 6.0 Absolute Lymphs (auto) 2.75 Nucleated RBC % 0 Sodium 141 Potassium 3.7 Chloride 103 Carbon Dioxide 20.7 L Anion Gap 17 H BUN 12 Creatinine 1.17 Estim Creat Clear Calc 54.50 Est GFR (MDRD) Non-Af 51 L BUN/Creatinine Ratio 10.4 Glucose 156 H Calcium 10.0 Troponin T High Sens 10 Urine Color Yellow Urine Clarity Sl. Cloudy Urine pH 8.0 Ur Specific [place] 1.015 Urine Protein 15 H Urine Glucose (UA) Normal Urine Ketones 50 H Urine Occult Blood 10 H Urine Nitrite Positive H Urine Bilirubin Negative Urine Urobilinogen Normal Ur Leukocyte Esterase 25 H Urine RBC 0-5 SEEN Urine WBC 10-25 SEEN Ur Squamous Epith Cells 5-10 SEEN Urine Bacteria 2+ Hyaline Casts 0-5 SEEN Urine Mucus 0 SEEN Treatment and Re-Evaluation :: I have personally performed a face to face assessment of the patient and have reviewed the JE Note. I performed a substantive portion of the visit including all aspects of the following. My segal findings include: History is patient is a 69-year-old female with history of migraines, GERD presenting after feeling lightheaded and vomiting twice. Patient states she had some recent dental work and had decreased oral intake over the past 2 days and spent 5 hours working in the garden. Denies any chest pain but states she does feel little short of breath. Was given IV fluids for EMS and states she is feeling better. She states she feels generally weak. Denies any abdominal pain. Denies any new bowel movements. No melena reported. Denies any frequency or urgency but notes that she has chronic malodorous urine. Is comfortable giving a urine sample to check for UTI. On exam patient is nontoxic-appearing. Normal vital signs in the emergency room. Afebrile. Head normocephalic atraumatic. Moist coastal membranes. Neck is supple with normal range of motion. Heart regular rate and rhythm. Lungs with auscultation bilaterally. Abdomen soft nontender. No peripheral edema appreciated. No rash appreciated. Workup including EKG, labs including troponin, BMP, CBC and urinalysis. CBC normal with no signs of leukocytosis. Lower suspicion for occult infection or sepsis. CMP shows mildly elevated anion gap and a bicarb of 20.7. Creatinine normal at 1.17. 2 years ago creatinine was 0.8 so she maybe has a mild bump. Urinalysis is consistent with infection with positive nitrite and 10-25 white blood cells over swelling contaminated. There are 2+ bacteria. Will send for culture but treat given the nitrates. Patient feels improved after IV fluids and is a steady gait. Vital signs are largely normal. Suspect she likely had some dehydration causing her presentation. Lower suspicion for more severe metabolic abnormality. High-sensitivity troponin normal at 10 and low suspicion for ACS equivalent. EKG did not show any acute ischemia. Patient ambulated emergency room states she is feeling better. Is comfortable discharge home. Given return precautions. Discharged home in stable condition. Other additions or changes: [None] Discharge Plan Triage Chief Complaint: Weakness ED Midlevel Provider: Ariana Cuevas ED Provider: Thalia Mendez Dx/Rx/DC Orders Clinical Impression: Nausea and vomiting, Acute dehydration, Heat exhaustion, Acute UTI Instructions: ED Heat Exhaustion Prescriptions: New cephalexin 500 mg capsule 500 mg PO BID 7 Days Qty: 14 0RF No Action glucosamine-chondroitin 250-200 mg tablet 2 tab PO TID Rx Instructions: give after food/meal cyanocobalamin (vitamin B-12) [Vitamin B-12] 500 mcg tablet 500 mcg PO DAILY cholecalciferol (vitamin D3) [Vitamin D3] 25 mcg (1,000 unit) tablet 25 mcg PO DAILY tamsulosin 0.4 mg capsule 0.4 mg PO Q24H PRN (Reason: KIDNEY STONES) Patient Comments: Take 1 capsule by mouth daily at bedtime. oxycodone 5 mg Tablet 5 - 10 mg PO Q6H PRN PRN (Reason: Pain Score 4-10) Qty: 0 0RF Stand Alone Forms: ED Work / School Excuse Primary Care Provider: Caity Sullivan Referrals: Caity Sullivan MD [Primary Care Provider] - Activity Restrictions/Additional Instructions: Rest, drink plenty of fluids and eat regular meals. If symptoms worsen come back to the ER. Print Language: Bengali Disposition Disposition: Home, Self Care Discharge Date/Time: 12/03/24 16:11
[2024-12-03 14:05] LABS: Absolute Lymphocyte Count 2.75 X10^3/uL (0.83-4.51); Basophil# 0.05 X10^3/uL; Basophil% 0.5 % (0-1); Eosinophil# 0.09 X10^3/uL; Eosinophils% 0.9 % (0-5); Hematocrit 40.4 % (37-47); Hemoglobin 13.6 g/dL (12.0-15.0); Lymphocyte # 2.75 X10^3/ul (0.83-4.51); Lymphocyte % 28.9 % (19-41); Mean Corp Hgb Conc 33.7 g/dL (32-36); Mean Corpuscular Hgb 30.4 pg (27.0-32.0); Mean Corpuscular Volume 90.2 fL (81-99); Mean Platelet Vol. 9.9 fl (6.2-12.0); Monocyte# 0.58 X10^3/uL; Monocyte% 6.1 % (0-10); NRBC Flagged by Analyzer 0 % (0-5); Neutrophil # 6.03 X10^3/uL (2.7-7.7); Neutrophil % 63.3 % (47-70); Platelet Count 349 K/mm3 (150-450); RBC Distribution Width SD 39.4 fl (35.1-43.9); Red Blood Count 4.48 M/mm3 (4.2-5.4); White Blood Count 9.5 K/mm3 (4.4-11.0)
[2024-12-03 14:15] VITALS: BP 140/70; PULSE 65; RESP 19; O2SAT 100
[2024-12-03 14:49] LABS: Anion Gap 17 (5-15); BUN 12 mg/dL (4-19); BUN/Creat Ratio 10.4 RATIO (10-20); Carbon Dioxide 20.7 mmol/L (21.0-32.0); Chloride 103 mmol/L (98-108); Creatinine, Serum 1.17 mg/dL (0.70-1.20); EST Glomerular Filtration Rate 51 (>60); Glucose 156 mg/dL (70-99); Potassium 3.7 mmol/L (3.3-5.1); Sodium Level 141 mmol/L (133-145); Troponin T High Sensitivity 10 ng/L (<=14)
[2024-12-03 15:00] VITALS: BP 146/79; PULSE 67; RESP 16; O2SAT 96
[2024-12-03 16:00] VITALS: PULSE 73; RESP 12; O2SAT 92
[2024-12-03 16:05] VITALS: BP 138/68; PULSE 73; RESP 12; TEMP 36.6; O2SAT 99
[2024-12-03 16:09] LABS: Mucous, Urine 0 SEEN /hpf (<or=2+)
[2024-12-03 17:06] LABS: Color, Urine Yellow (Yellow); Glucose, Dipstick Normal (Normal); Ketone-Dipstick 50 mg/dl (Negative); Leukocyte Esterase-Dipstick 25 /ul (Negative); Nitrite-Dipstick Positive (Negative); Occult Blood-Urine 10 /ul (Negative); Protein-Dipstick 15 mg/dl (Negative); Specific Gravity, Urine 1.015 (1.002-1.030); Urine Bilirubin Dipstick Negative (Negative); Urine Clarity Sl. Cloudy (Clear); Urine Urobilinogen Normal (Normal)
[2024-12-03 17:28] LABS: Bacteria 2+ /hpf (None Seen); White Blood Cells 10-25 SEEN /hpf (0-5)
[2024-12-03 17:30] LABS: Hyaline Cast 0-5 SEEN /lpf (0-5); Red Blood Cells-Urine 0-5 SEEN /hpf (0-5)
[2024-12-03 17:32] LABS: Squamous Epithelial Cells - UA 5-10 SEEN /hpf (5-10)
== END 2024-12-03 16:11 | disposition home or self-care (01) ==
PROVIDERS: Physician Assistant; Emergency Provider Emergency Medicine; PCP Internal Medicine; Referring Provider Emergency Medicine; Visit Provider Emergency Medicine
DX: R53.1 Weakness (principal); N39.0 Urinary tract infection, site not specified; Z87.891 Personal history of nicotine dependence; T67.5XXA Heat exhaustion, unspecified, initial encounter; E86.0 Dehydration; R11.2 Nausea with vomiting, unspecified; X58.XXXA Exposure to other specified factors, initial encounter; Y93.H2 Activity, gardening and landscaping
CPT/HCPCS: 80048; 81001; 84484; 85025; 87077; 87086; 87088; 87186; 93005; 96374; 99284; J2405